=== PATIENT | male | born 1940 | race Caucasian/White ===

== ENCOUNTER → 2017-02-02 | Outpatient (CLI) | payer MEDICARE, OTHER ==
[~2017-02-02] MED LIST: ALBUAER3 INH; ASPI-516 CHEW; CENTCHW4 CHEW; CIPR500T2 PO; CORE25TA PO; ENAL5TAB PO; FENO54TA PO; FLUT1SPR5 EACH NARE; FURO1TAB60 PO; NITR1SUB3 SL; PLAV75TA29 PO; POTA10CA PO; PROS5TAB PO; ROSU40 PO; TIZA2CAP3 PO; VALS1TAB64 PO; ZITHTAB PO
== END ==
LOC: HSPC 11:42
PROVIDERS: ATTEND Family Medicine
DX: Z00.00 Encounter for general adult medical examination without abnormal findings (principal)
CPT/HCPCS: 99213; G0463

== ENCOUNTER 2017-04-23 16:46 | Inpatient (IN) | payer MEDICARE, OTHER ==
[~2017-04-23] VITALS: Ht 182.9 cm; Wt 92.0 kg
[2017-04-23 00:25] VITALS: BP 170/101; PULSE 106; RESP 18; TEMP 94.5; O2SAT 93
[~2017-04-23 16:46] MED LIST changes: -CIPR500T2 PO; -ENAL5TAB PO; -FLUT1SPR5 EACH NARE; +MELO15TA20 PO; -ZITHTAB PO
[2017-04-23 16:48] VITALS: BP 142/69; PULSE 88; RESP 21; TEMP 97.9; O2SAT 94
[2017-04-23] MEDS ORDERED: methylPREDNISolone SOD SUCC 125 MG/2 ML VIAL IV PUSH ONE (19:15)
[2017-04-23] MEDS ORDERED: SODIUM CHLORIDE 0.9% FLUSH 10 ML FLUSH IVF PRN (19:15)
--- NOTE | 2017-04-23 19:17 | PD ---
HPI Chief Complaint: Respiratory Symptoms Time Seen by Provider: 19:13 Travel History International Travel<30 days: No Contact w/Intl Traveler<30days: No Traveled to known affect area: No History of Present Illness HPI 76-year-old male patient with history of CAD, CABG, CHF, COPD, presents to the ER today with 2 weeks history of coughing, shortness of breath, dyspnea on exertion, worse with laying down and according to his daughter. He has not been running any fevers, has some sternal area chest discomfort especially with coughing. He had been seen a few weeks ago at [facility] and treated with steroids and they state that it doesn't seem to be improving. Modifying Factors: None Associated Signs & Symptoms: Coughing, shortness of breath, dyspnea on exertion Risk Factors: COPD, CHF PFSH Past Medical History Cancer: Yes ('LUNG") High Cholesterol: Yes COPD: Yes Hypertension: Yes Past Surgical History Appendectomy: Yes Cardiac Surgery: Yes ("TRIPLE BYPASS", STENTS X2) Social History Alcohol Use: No Tobacco Use: No Substance Use: No Allergies-Medications (Allergen,Severity, Reaction): Coded Allergies: No Known Allergies (Verified Adverse Reaction, Unknown, 04/23/17) Reported Meds & Prescriptions Reported Meds & Active Scripts Active Meloxicam 15 Mg Tab 15 Mg PO DAILY Lasix (Furosemide) 40 Mg Tab 40 Mg PO BID Proscar (Finasteride) 5 Mg Tab 5 Mg PO DAILY Do not crush. Fenofibrate 54 Mg Tab 54 Mg PO DAILY Proair Hfa 8.5 GM Inh (Albuterol Sulfate) 90 Mcg/Act Aer 1 Puff INH Q4H PRN 108 mcg/actuation Reported Valsartan 80 Mg Tab 80 Mg PO DAILY Coreg (Carvedilol) 25 Mg Tab 25 Mg PO BID Aspirin 81 Mg Chew 81 Mg CHEW DAILY Centrum (Multiple Vitamins W/ Minerals) 1 Chew 1 Tab CHEW DAILY Nitroglycerin SL (Nitroglycerin) 0.4 Mg Subl 0.4 Mg SL DIRECTED PRN ONE TABLET UNDER THE TONGUE NEEDED FOR CHEST PAIN, MAY REPEAT EVERY FIVE MINUTES FOR A TOTAL OF 3 DOSES OR CALL 911 IF NO RELIEF Plavix (Clopidogrel Bisulfate) 75 Mg Tab 75 Mg PO DAILY Review of Systems Except as stated in HPI: all other systems reviewed are Neg Physical Exam Narrative GENERAL: Well-developed elderly white male patient currently in mild respiratory distress. Awake and oriented 3. He is sitting up. SKIN: Focused skin assessment warm/dry. HEAD: Atraumatic. Normocephalic. EYES: Pupils equal and round. No scleral icterus. No injection or drainage. ENT: No nasal bleeding or discharge. Mucous membranes pink and moist. NECK: Trachea midline. No JVD. Supple. CARDIOVASCULAR: Regular rate and rhythm. No murmur appreciated. RESPIRATORY: No accessory muscle use. Mild wheezing throughout. Breath sounds equal bilaterally. GASTROINTESTINAL: Abdomen soft, non-tender, nondistended. Hepatic and splenic margins not palpable. MUSCULOSKELETAL: No obvious deformities. No clubbing. No cyanosis. No edema. NEUROLOGICAL: Awake and alert. No obvious cranial nerve deficits. Motor grossly within normal limits. Normal speech. PSYCHIATRIC: Appropriate mood and affect; insight and judgment normal. Data Data Last Documented VS Vital Signs Date Time Temp Pulse Resp B/P (MAP) Pulse Ox O2 Delivery O2 Flow Rate FiO2 04/23/17 21:53 94 Room Air 04/23/17 21:53 16 04/23/17 20:03 1.00 04/23/17 18:37 86 04/23/17 16:48 97.9 Orders Orders Complete Blood Count With Diff (04/23/17 19:13) Comprehensive Metabolic Panel (04/23/17 19:13) B-Type Natriuretic Peptide (04/23/17 19:13) Ckmb (Isoenzyme) Profile (04/23/17 19:13) Troponin I (04/23/17 19:13) Influenzae A/B Antigen (04/23/17 19:13) Iv Access Insert/Monitor (04/23/17 19:13) Electrocardiogram (04/23/17 19:13) Ecg Monitoring (04/23/17 19:13) Oximetry (04/23/17 19:13) Oxygen Administration (04/23/17 19:13) Chest, Single Ap (04/23/17 19:13) Sodium Chloride 0.9% Flush (Ns Flush) (04/23/17 19:15) Methylprednisolone So Succ Inj (Solumedr (04/23/17 19:15) Albuterol-Ipratropium Neb (Duoneb Neb) (04/23/17 19:15) Albuterol-Ipratropium Neb (Duoneb Neb) (04/23/17 20:00) Furosemide Inj (Lasix Inj) (04/23/17 20:30) Albuterol-Ipratropium Neb (Duoneb Neb) (04/23/17 21:15) Admit Order (Ed Use Only) (04/23/17 22:13) Albuterol-Ipratropium Neb (Duoneb Neb) (04/24/17 08:00) Albuterol-Ipratropium Neb (Duoneb Neb) (04/23/17 22:15) Budeson-Formot 160-4.5 Mcg Inh (Symbicor (04/24/17 09:00) Guaifenesin Er (Mucinex Er) (04/24/17 09:00) Methylprednisolone So Succ Inj (Solumedr (04/24/17 00:00) Place In Observation (04/23/17 ) Vital Signs (Adult) Q4H (04/23/17 22:12) Activity Oob Ad Rosmery (04/23/17 22:12) Vessel Captain / Telemetry .CONTINUOUS (04/23/17 22:12) Diet Heart Healthy (04/24/17 Breakfast) Sodium Chloride 0.9% Flush (Ns Flush) (04/23/17 22:15) Sodium Chloride 0.9% Flush (Ns Flush) (04/24/17 09:00) Ondansetron Inj (Zofran Inj) (04/23/17 22:15) Comprehensive Metabolic Panel (04/24/17 06:00) Complete Blood Count With Diff (04/24/17 06:00) Troponin I (04/24/17 00:00) Troponin I (04/24/17 06:00) Enoxaparin Inj (Lovenox Inj) (04/24/17 09:00) Acetaminophen (Tylenol) (04/23/17 22:15) Acetamin-Hydrocod 325-5 Mg ([place] 5-325 (04/23/17 22:15) Acetamin-Hydrocod 325-10 Mg ([place] 10-32 (04/23/17 22:15) Docusate Sodium-Senna (Karishma-Colace) (04/24/17 09:00) Magnesium Hydroxide Liq (Milk Of Magnesi (04/23/17 22:15) Sennosides (Senokot) (04/23/17 22:15) Bisacodyl Supp (Dulcolax Supp) (04/23/17 22:15) Lactulose Liq (Lactulose Liq) (04/23/17 22:15) Aspirin Chew (Aspirin Chew) (04/24/17 09:00) Carvedilol (Coreg) (04/24/17 09:00) Clopidogrel (Plavix) (04/24/17 09:00) Finasteride (Proscar) (04/24/17 09:00) Furosemide (Lasix) (04/24/17 09:00) Valsartan (Diovan) (04/24/17 09:00) Fenofibrate (Tricor) (04/24/17 09:00) Labs Laboratory Tests Test 04/23/17 19:35 White Blood Count 9.2 TH/MM3 Red Blood Count 4.90 MIL/MM3 Hemoglobin 14.9 GM/DL Hematocrit 44.7 % Mean Corpuscular Volume 91.2 FL Mean Corpuscular Hemoglobin 30.4 PG Mean Corpuscular Hemoglobin Concent 33.4 % Red Cell Distribution Width 17.0 % Platelet Count 107 TH/MM3 Mean Platelet Volume 8.7 FL Neutrophils (%) (Auto) 77.2 % Lymphocytes (%) (Auto) 14.4 % Monocytes (%) (Auto) 6.4 % Eosinophils (%) (Auto) 1.3 % Basophils (%) (Auto) 0.7 % Neutrophils # (Auto) 7.1 TH/MM3 Lymphocytes # (Auto) 1.3 TH/MM3 Monocytes # (Auto) 0.6 TH/MM3 Eosinophils # (Auto) 0.1 TH/MM3 Basophils # (Auto) 0.1 TH/MM3 CBC Comment DIFF FINAL Differential Comment Blood Urea Nitrogen 21 MG/DL Creatinine 1.30 MG/DL Random Glucose 97 MG/DL Total Protein 6.8 GM/DL Albumin 3.6 GM/DL Calcium Level 9.1 MG/DL Alkaline Phosphatase 72 U/L Aspartate Amino Transf (AST/SGOT) 25 U/L Alanine Aminotransferase (ALT/SGPT) 76 U/L Total Bilirubin 0.8 MG/DL Sodium Level 139 MEQ/L Potassium Level 3.5 MEQ/L Chloride Level 104 MEQ/L Carbon Dioxide Level 27.3 MEQ/L Anion Gap 8 MEQ/L Estimat Glomerular Filtration Rate 54 ML/MIN Total Creatine Kinase 82 U/L Troponin I 0.16 NG/ML B-Type Natriuretic Peptide 508 PG/ML MDM Medical Decision Making Medical Screen Exam Complete: Yes Emergency Medical Condition: Yes Medical Record Reviewed: Yes Interpretation(s) EKG shows normal sinus rhythm at a rate of 83 bpm. He does have T-wave inversions in the lateral leads, V1 through V6. No signs of acute ST-T elevations. Laboratory Tests Test 04/23/17 19:35 Platelet Count 107 TH/MM3 (150-450) Neutrophils (%) (Auto) 77.2 % (16.0-70.0) Blood Urea Nitrogen 21 MG/DL (7-18) Estimat Glomerular Filtration Rate 54 ML/MIN (>89) Troponin I 0.16 NG/ML (0.02-0.05) B-Type Natriuretic Peptide 508 PG/ML (0-100) Last 24 hours Impressions Chest X-Ray 04/23/17 1913 Signed Impressions: Service Date/Time: Sunday, April 23, 2017 19:29 - CONCLUSION: No evidence of acute cardiopulmonary disease. Gregorio Hatfield MD Differential Diagnosis Coughing, shortness of breath: CHF exacerbation versus pneumonia versus COPD exacerbation versus bronchitis Narrative Course Patient was initially given Solu-Medrol and nebulizers in the ER. Lasix was also given due to patient's history of CHF. His initial EKG shows T-wave inversions in the lateral leads. His troponin is mildly elevated. He is not having any chest pains. However this will need to be evaluated as well. At this point, my plan would be to admit the patient for further evaluation and treatment. Case is discussed with Dr. Lemus for admission. Diagnosis Primary Impression: COPD exacerbation Additional Impression: Elevated troponin Admitting Information Admitting Physician Requests: Admit Jason Armenta MD Apr 23, 2017 19:17
--- NOTE | 2017-04-23 19:42 | RADRPT ---
EXAM DATE/TIME: 04/23/2017 19:29 [place] COMPARISON: No previous studies available for comparison. INDICATIONS : Short of Breath MEDICAL HISTORY : Cardiovascular disease. SURGICAL HISTORY : CABG. ENCOUNTER: Initial ACUITY: 1 day PAIN SCORE: 0/10 LOCATION: chest FINDINGS: A single view of the chest demonstrates the lungs to be symmetrically aerated without evidence of mas s, infiltrate or effusion. The cardiomediastinal contours are unremarkable. Osseous structures are intact. Median sternotomy/CABG changes are noted. CONCLUSION: No evidence of acute cardiopulmonary disease. Gregorio Hatfield MD on April 23, 2017 at 19:39 Board Certified Radiologist. This report was verified electronically.
[2017-04-23 19:51] LABS: AUTOMATED NEUTROPHIL # 7.1 TH/MM3 (1.8-7.7); BASOPHIL # 0.1 TH/MM3 (0-0.2); BASOPHIL % 0.7 % (0.0-2.0); EOSINOPHIL # 0.1 TH/MM3 (0-0.4); EOSINOPHIL % 1.3 % (0.0-4.0); HEMATOCRIT 44.7 % (39.0-51.0); HEMOGLOBIN 14.9 GM/DL (13.0-17.0); LYMPH % 14.4 % (9.0-44.0); LYMPHOCYTE # 1.3 TH/MM3 (1.0-4.8); MEAN CELL VOLUME 91.2 FL (80.0-100.0); MEAN CORPUSCULAR HEMOGLOBIN 30.4 PG (27.0-34.0); MEAN CORPUSCULAR HGB CONC 33.4 % (32.0-36.0); MEAN PLATELET VOLUME 8.7 FL (7.0-11.0); MONO % 6.4 % (0.0-8.0); MONOCYTE # 0.6 TH/MM3 (0-0.9); NEUT % 77.2 % (16.0-70.0); PLATELET COUNT 107 TH/MM3 (150-450); WHITE BLOOD COUNT 9.2 TH/MM3 (4.0-11.0)
[2017-04-23] MEDS: RESP: ALBUTEROL 2.5 MG/IPRATROPIUM 0.5 MG NEB (SCH) INH ×3 (20:01→21:28)
[2017-04-23 20:03] VITALS: O2SAT 97
[2017-04-23 20:06] LABS: ALBUMIN 3.6 GM/DL (3.4-5.0); AST (GOT) 25 U/L (15-37); BICARBONATE 27.3 MEQ/L (21.0-32.0); BLOOD UREA NITROGEN 21 MG/DL (7-18); CALCIUM 9.1 MG/DL (8.5-10.1); CHLORIDE 104 MEQ/L (98-107); GLOMERULAR FILTRATION RATE 54 ML/MIN (>89); GLUCOSE,RANDOM 97 MG/DL (74-106); SODIUM (NA) 139 MEQ/L (136-145)
[2017-04-23 20:07] LABS: ALT (GPT) 76 U/L (12-78)
[2017-04-23 20:11] LABS: ALKALINE PHOSPHATASE 72 U/L (45-117); TOTAL BILIRUBIN ADULT 0.8 MG/DL (0.2-1.0); TOTAL PROTEIN 6.8 GM/DL (6.4-8.2); TROPONIN I 0.16 NG/ML (0.02-0.05)
[2017-04-23] MEDS ORDERED: FUROSEMIDE 40 MG/4 ML VIAL IV PUSH ONE (20:30)
[2017-04-23 21:53] VITALS: RESP 16; O2SAT 94
[2017-04-23] MEDS ORDERED: ACETAMINOPHEN/HYDROcodone 325 MG/10 MG TAB PO PRN (22:15)
[2017-04-23] MEDS ORDERED: ONDANSETRON HCL 4 MG/2 ML VIAL IVP PRN (22:15)
[2017-04-23] MEDS ORDERED: SENNOSIDES 8.6 MG TAB PO PRN (22:15)
[2017-04-23] MEDS ORDERED: SODIUM CHLORIDE 0.9% FLUSH 10 ML FLUSH IV FLUSH PRN (22:15)
[2017-04-23] MEDS ORDERED: RESP: ALBUTEROL 2.5 MG/IPRATROPIUM 0.5 MG NEB (PRN) NEB (22:15)
[2017-04-23] MEDS ORDERED: LACTULOSE SYRUP 20 GM/30 ML CUP PO PRN (22:15)
[2017-04-23] MEDS ORDERED: ACETAMINOPHEN 325 MG TAB PO PRN (22:15)
[2017-04-23] MEDS ORDERED: MAGNESIUM HYDROXIDE SUSP 30 ML CUP PO PRN (22:15)
[2017-04-23] MEDS ORDERED: ACETAMINOPHEN/HYDROcodone 325 MG/5 MG TAB PO PRN (22:15)
[2017-04-23] MEDS ORDERED: BISACODYL 10 MG SUPP RECTAL PRN (22:15)
--- NOTE | 2017-04-23 22:16 | HHI.HP ---
HPI [facility] Primary [facility] Physician No Primary Care Physician Admission Diagnosis COPD exacerbation/elevated troponin Diagnoses: (1) COPD (chronic obstructive pulmonary disease) Diagnosis: Principal (2) Elevated troponin Diagnosis: Principal (3) CHF (congestive heart failure) Diagnosis: Principal Travel History International Travel<30 Days: No Contact w/Intl Traveler <30 Da: No Traveled to Known Affected Are: No History of Present Illness This is a 76-year-old male with a PMH of HTN, CAD, CHF (Cardiac Cath 10/05/12 w EF 35%) and COPD who presented to the ER w/ complaints of SOB and cough for approx 2 wks. States SOB is intermittent, worse w/ exertion, associated w/ wheezing. No c/o chest pain. Reports non-productive cough but no fever or chills, notes some mild lower extremity edema. Seen at [facility] for similar symptoms 1 wk ago, given steroids w/ minimal improvement. States has been using home Nebulizer machine w/ no improvement either. On arrival, BP 142/69, HR 88, O2 sat 94% on RA, Afebrile CBC essentially at baseline. Chemistry unremarkable except for BUN 21. Troponin 0.16. BNP 508. INR 1.0. CXR with no acute findings. S/p Lasix, DuoNeb x3 and Solu-Medrol in ER w/ some improvement however persistent SOB/wheezing w/ exertion. Follows w/ Dr. Andrade as outpatient, has upcoming appt on . Review of Systems Except as stated in HPI: all other systems reviewed are Neg ROS: 14 point review of systems otherwise negative. Past Family Social History Past Medical History PMH: HTN, CAD, CHF (Cardiac Cath 10/05/12 w EF 35%) and COPD Past Surgical History PAST SURGICAL HISTORY: CABG, Appendectomy Allergies: Coded Allergies: No Known Allergies (Verified Adverse Reaction, Unknown, 04/23/17) Family History PAST FAMILY HISTORY: Reviewed. No h/o DM or CAD Social History PAST SOCIAL HISTORY: Negative for alcohol, tobacco or drugs. Physical Exam Vital Signs Vital Signs Date Time Temp Pulse Resp B/P (MAP) Pulse Ox O2 Delivery O2 Flow Rate FiO2 04/23/17 21:53 94 Room Air 04/23/17 21:53 16 94 Room Air 04/23/17 20:03 97 Nasal Cannula 1.00 04/23/17 18:37 86 22 95 1.00 04/23/17 16:48 97.9 88 21 142/69 (93) 94 Physical Exam PE: GENERAL: Extremely pleasant elderly white male in no acute distress, appears younger than stated age. HEENT: PERRLA, EOMI. No scleral icterus or conjunctival pallor. No lid lag or facial droop. CARDIOVASCULAR: Regular rate and rhythm. No obvious murmurs to auscultation. No chest tenderness to palpation. RESPIRATORY: No obvious rhonchi, occasional wheezing, otherwise clear to auscultation. Breath sounds equal bilaterally. GASTROINTESTINAL: Abdomen soft, non-tender, nondistended. BS normal. MUSCULOSKELETAL: Extremities without clubbing, cyanosis, or edema. No obvious deformities. NEUROLOGICAL: Awake, alert and oriented x4. No focal neurologic deficits. Moving both upper and lower extremities spontaneously. Laboratory Laboratory Tests Test 04/23/17 19:35 White Blood Count 9.2 Red Blood Count 4.90 Hemoglobin 14.9 Hematocrit 44.7 Mean Corpuscular Volume 91.2 Mean Corpuscular Hemoglobin 30.4 Mean Corpuscular Hemoglobin Concent 33.4 Red Cell Distribution Width 17.0 Platelet Count 107 Mean Platelet Volume 8.7 Neutrophils (%) (Auto) 77.2 Lymphocytes (%) (Auto) 14.4 Monocytes (%) (Auto) 6.4 Eosinophils (%) (Auto) 1.3 Basophils (%) (Auto) 0.7 Neutrophils # (Auto) 7.1 Lymphocytes # (Auto) 1.3 Monocytes # (Auto) 0.6 Eosinophils # (Auto) 0.1 Basophils # (Auto) 0.1 CBC Comment DIFF FINAL Differential Comment Blood Urea Nitrogen 21 Creatinine 1.30 Random Glucose 97 Total Protein 6.8 Albumin 3.6 Calcium Level 9.1 Alkaline Phosphatase 72 Aspartate Amino Transf (AST/SGOT) 25 Alanine Aminotransferase (ALT/SGPT) 76 Total Bilirubin 0.8 Sodium Level 139 Potassium Level 3.5 Chloride Level 104 Carbon Dioxide Level 27.3 Anion Gap 8 Estimat Glomerular Filtration Rate 54 Total Creatine Kinase 82 Troponin I 0.16 B-Type Natriuretic Peptide 508 Date/Time Source Procedure Growth Status 04/23/17 19:35 Nasal Washing Influenza Types A,B Antigen (JOAN) - Final NEGATIVE FOR FLU A AND B ANTIGEN.... Complete Result Diagram: 04/23/17193404/23/171934 Fabrice VTE Risk Assessment Joshua VTE Risk Assessment: No/Low Risk (score <= 1) Joshua Risk Assessment Model Point Value = 1 Point Value = 2 Point Value = 3 Point Value = 5 Age 41-60 Minor surgery BMI > 25 kg/m2 Swollen legs Varicose veins or History of unexplained or recurrent spontaneous Oral contraceptives or hormone replacement Sepsis (< 1 month) Serious lung disease, including pneumonia (< 1 month) Abnormal pulmonary function Acute myocardial infarction Congestive heart failure (< 1 month) History of inflammatory bowel disease Medical patient at bed rest Age 61-74 Arthroscopic surgery Major open surgery (> 45 min) Laparoscopic surgery (> 45 min) Malignancy Confined to bed (> 72 hours) Immobilizing plaster cast Central venous access Age >= 75 History of VTE Family history of VTE Factor V Leiden Prothrombin [id number] Lupus anticoagulant Anticardiolipin antibodies Elevated serum homocysteine Heparin-induced thrombocytopenia Other congenital or acquired thrombophilia Stroke (< 1 month) Elective arthroplasty Hip, pelvis, or leg fracture Acute spinal cord injury (< 1 month) Prophylaxis Regimen Total Risk Factor Score Risk Level Prophylaxis Regimen 0-1 Low Early ambulation 2 Moderate Order ONE of the following: *Sequential Compression Device (SCD) *Heparin 5000 units SQ BID 3-4 Higher Order ONE of the following medications: *Heparin 5000 units SQ TID *Enoxaparin/Lovenox 40 mg SQ daily (WT < 150 kg, CrCl > 30 mL/min) *Enoxaparin/Lovenox 30 mg SQ daily (WT < 150 kg, CrCl > 10-29 mL/min) *Enoxaparin/Lovenox 30 mg SQ BID (WT < 150 kg, CrCl > 30 mL/min) AND/OR *Sequential Compression Device (SCD) 5 or more Highest Order ONE of the following medications: *Heparin 5000 units SQ TID (Preferred with Epidurals) *Enoxaparin/Lovenox 40 mg SQ daily (WT < 150 kg, CrCl > 30 mL/min) *Enoxaparin/Lovenox 30 mg SQ daily (WT < 150 kg, CrCl > 10-29 mL/min) *Enoxaparin/Lovenox 30 mg SQ BID (WT < 150 kg, CrCl > 30 mL/min) AND *Sequential Compression Device (SCD) Assessment and Plan Problem List: (1) COPD (chronic obstructive pulmonary disease) ICD Code: J44.9 - Chronic obstructive pulmonary disease, unspecified (2) Elevated troponin ICD Code: R74.8 - Abnormal levels of other serum enzymes Status: Acute (3) CHF (congestive heart failure) ICD Code: I50.9 - Heart failure, unspecified Assessment and Plan A/P: 1. COPD: Chronic Respiratory Failure w/ Acute Exacerbation. Moderate-Severe, s/p multiple treatments w/ DuoNeb and Solu-Medrol w/ persistent SOB/wheezing, worse w/ exertion. Admit for continued treatment. Solu-Medrol, DuoNeb q4h and q2h prn, Symbicort. Monitor O2. 2. CHF: Acute on Chronic. Systolic. Cardiac Cath 10/05/12 w/ EF 35%, BNP 508 , s/p Lasix 40mg IV in ER. Monitor I/O. Check Echo to eval for systolic/ diastolic dysfunction. Continue w/ diuresis. 3. Elevated Trop: Trop 0.16, EKG w/ no acute ischemia, no c/o chest pain, likely secondary to acute CHF however R/o ACS in light of significant cardiac history. Check serial cardiac enzymes, NTG/Morphine prn as needed. Resume home medications. Follows w/ Dr. Andrade, will consult for further evaluation. 4. DVT Prophylaxis: SCD/teds. 5. Social work for DC planning as needed. 6. Case discussed at length with ER physician, labs/imaging/records reviewed by me. Perla Lemus MD Apr 23, 2017 22:16
[2017-04-23] MEDS: methylPREDNISolone SOD SUCC 40 MG/1 ML VIAL IV PUSH SCH (23:59)
[2017-04-24] VITALS (10 sets, daily range): BP systolic 116–124; BP diastolic 55–68; PULSE 77–98; RESP 18–19; TEMP 94.6–98.2; O2SAT 92–99
[2017-04-24] MEDS: methylPREDNISolone SOD SUCC 40 MG/1 ML VIAL IV PUSH SCH ×3 (05:43→17:17)
[2017-04-24] MEDS: RESP: ALBUTEROL 2.5 MG/IPRATROPIUM 0.5 MG NEB (SCH) NEB ×4 (07:46→20:05)
[2017-04-24 08:26] LABS: AUTOMATED NEUTROPHIL # 6.1 TH/MM3 (1.8-7.7); BASOPHIL % 0.2 % (0.0-2.0); EOSINOPHIL % 0.1 % (0.0-4.0); HEMATOCRIT 42.2 % (39.0-51.0); HEMOGLOBIN 14.2 GM/DL (13.0-17.0); LYMPH % 7.4 % (9.0-44.0); LYMPHOCYTE # 0.5 TH/MM3 (1.0-4.8); MEAN CELL VOLUME 91.3 FL (80.0-100.0); MEAN CORPUSCULAR HEMOGLOBIN 30.8 PG (27.0-34.0); MEAN CORPUSCULAR HGB CONC 33.7 % (32.0-36.0); MEAN PLATELET VOLUME 8.4 FL (7.0-11.0); MONO % 1.6 % (0.0-8.0); MONOCYTE # 0.1 TH/MM3 (0-0.9); NEUT % 90.7 % (16.0-70.0); PLATELET COUNT 94 TH/MM3 (150-450); RED BLOOD COUNT 4.63 MIL/MM3 (4.50-5.90); RED CELL DISTRIBUTION WIDTH 17.4 % (11.6-17.2); WHITE BLOOD COUNT 6.8 TH/MM3 (4.0-11.0)
--- NOTE | 2017-04-24 08:50 | MB ---
cc: BRIDGER LOZANO M.D. DATE OF CONSULTATION: 04/24/2017 REASON FOR CONSULTATION Abnormal troponin level. HISTORY OF PRESENT ILLNESS The patient is a 76-year-old white male with a history of sleep apnea, ischemic cardiomyopathy, coronary artery disease, hypertension, hyperlipidemia, non-Hodgkin's lymphoma, who presented to the hospital with a several-day history of worsening dyspnea. Over these last several days he has also had a nonproductive cough without fevers, chills, sweats. He denies angina, paroxysmal nocturnal dyspnea, orthopnea, pedal edema, palpitations, dizziness, syncope, near-syncope. Since coming into the hospital his dyspnea has slightly improved. PAST MEDICAL HISTORY 1. Sleep apnea. 2. Congestive heart failure dating back to 2012 with his most recent exacerbation July 2016. 3. Ischemic cardiomyopathy with ejection fraction of 40-45% by echo on 12/08/2016. 4. Hyperlipidemia. 5. Hypertension. 6. Non-Hodgkin's lymphoma. 7. Coronary artery disease status post three-vessel bypass surgery in [place], [place] in 1998. He is also status post stenting of the midportion of the vein graft to the diagonal 03/31/2011. At that time he also underwent stent x 2 of the [place] LAD. On his last heart catheterization 09/25/2012, there was minimal left main disease, totally occluded proximal LAD, possibly totally occluded obtuse marginal, totally occluded mid-right coronary artery with good [id number] collaterals, totally occluded vein graft to the diagonal, patent left internal mammary artery to the LAD with patent [place] LAD stents, totally occluded vein graft to the obtuse marginal. MEDICATIONS Cardiac medications at home: 1. Plavix 75 mg daily. 2. Aspirin 81 mg daily. 3. Coreg 25 mg b.i.d. 4. Valsartan 80 mg daily. 5. Furosemide 40 mg b.i.d. 6. Fenofibrate 54 mg daily. ALLERGIES NO KNOWN DRUG ALLERGIES. FAMILY HISTORY Noncontributory. SOCIAL HISTORY The patient is a former smoker. He denies alcohol abuse. REVIEW OF SYSTEMS As in the history of present illness, otherwise negative or noncontributory. He also denies headache, abdominal pain, melena, dyspepsia, diarrhea, bright red blood per rectum. PHYSICAL EXAMINATION VITAL SIGNS: Blood pressure 124/68 with a pulse of 80, respirations 18. GENERAL: He is a well-developed, well-nourished white male in no acute distress. HEENT: Jugular venous pressure is normal. Carotid pulses are 2+ bilaterally and without bruits. CHEST: Examination of the chest reveals clear lung robertson. CARDIAC: He has a regular rhythm and rate with a grade 1/6 systolic murmur heard best at the apex. No gallop is audible. ABDOMEN: On abdominal examination he has a soft, nontender abdomen. Bowel sounds are present. There is no definite hepatosplenomegaly. EXTREMITIES: Examination of the extremities reveals no clubbing, cyanosis or edema. IMAGING STUDIES Chest x-ray shows no acute disease. EKG Shows sinus rhythm, right bundle-branch block, lateral ST abnormality, consider ischemia. LABORATORY DATA Laboratory data includes normal CBC, potassium 3.5, BUN 21, creatinine 1.30, troponin 0.16. IMPRESSION Minimally elevated troponin levels in this 76-year-old white male with a history of coronary artery disease, mild ischemic cardiomyopathy, congestive heart failure, sleep apnea, hypertension, hyperlipidemia. Overall, I doubt the slightly elevated troponin levels are due to acute coronary syndrome. He has had no angina symptoms recently. I doubt his dyspnea is an angina equivalent. Despite constant dyspnea for several days, CK level is negative for myocardial infarction. Echocardiogram is pending. There is no definite evidence of congestive heart failure. Chest x-ray shows no acute disease. RECOMMENDATIONS 1. Continue his usual home cardiac medications. 2. Await his echo; otherwise recommend no additional cardiac workup at this time. MD YURI Michelle/ENDER /8:23 AM /8:36 AM CHRISTOS
[2017-04-24] MEDS: DOCUSATE SODIUM 50 MG/SENNA 8.6 MG TAB PO SCH ×2 (08:58→22:08)
[2017-04-24] MEDS: BUDESONIDE-FORMOTEROL 160/4.5 MCG INHALER INH SCH ×2 (08:58→22:09)
[2017-04-24] MEDS: ASPIRIN 81 MG CHEW TAB CHEW SCH (08:58)
[2017-04-24] MEDS: FENOFIBRATE 48 MG TAB PO SCH (08:59)
[2017-04-24] MEDS: VALSARTAN 80 MG TAB PO SCH (09:00)
[2017-04-24] MEDS ORDERED: FUROSEMIDE 40 MG TAB PO SCH (09:00)
[2017-04-24] MEDS: guaiFENesin E.R. 600 MG TAB PO SCH ×2 (09:00→22:08)
[2017-04-24] MEDS: CARVEDILOL 12.5 MG TAB PO SCH ×2 (09:01→22:08)
[2017-04-24] MEDS: CLOPIDOGREL 75 MG TAB PO SCH (09:01)
[2017-04-24] MEDS: FINASTERIDE 5 MG TAB PO SCH (09:02)
[2017-04-24] MEDS: ENOXAPARIN SODIUM 40 MG/0.4 ML SYRINGE SQ SCH (09:03)
[2017-04-24] MEDS: SODIUM CHLORIDE 0.9% FLUSH 10 ML FLUSH IV FLUSH SCH ×2 (09:03→22:08)
[2017-04-24 09:08] LABS: ALBUMIN 3.4 GM/DL (3.4-5.0); ALT (GPT) 67 U/L (12-78); AST (GOT) 22 U/L (15-37); BICARBONATE 26.5 MEQ/L (21.0-32.0); BLOOD UREA NITROGEN 24 MG/DL (7-18); CALCIUM 9.2 MG/DL (8.5-10.1); CHLORIDE 103 MEQ/L (98-107); CREATININE 1.15 MG/DL (0.60-1.30); GLOMERULAR FILTRATION RATE 62 ML/MIN (>89); GLUCOSE,RANDOM 233 MG/DL (74-106); SODIUM (NA) 137 MEQ/L (136-145)
[2017-04-24 09:21] LABS: ALKALINE PHOSPHATASE 62 U/L (45-117); TOTAL BILIRUBIN ADULT 0.7 MG/DL (0.2-1.0); TOTAL PROTEIN 6.7 GM/DL (6.4-8.2); TROPONIN I 0.13 NG/ML (0.02-0.05)
[2017-04-24] MEDS ORDERED: BENZONATATE 100 MG CAP PO ONE (14:45)
--- NOTE | 2017-04-24 18:14 | HHI.PR ---
Subjective Remarks Follow for COPD exacerbation. Patient still feels short of breath and wheezy. No fever, chills. He continues to have cough. On 2L of O2 via NC. Objective Vitals Vital Signs Date Time Temp Pulse Resp B/P (MAP) Pulse Ox O2 Delivery O2 Flow Rate FiO2 04/24/17 15:57 97.6 84 19 121/61 (81) 95 04/24/17 11:43 96.3 84 19 116/55 (75) 94 04/24/17 07:59 97.5 81 18 124/68 (86) 96 04/24/17 07:48 98 Nasal Cannula 2.00 04/24/17 05:24 81 04/24/17 04:20 94.6 77 18 118/60 (79) 94 04/24/17 01:45 98 04/24/17 00:39 99 Nasal Cannula 2.00 04/23/17 21:53 94 Room Air 04/23/17 21:53 16 94 Room Air 04/23/17 20:03 97 Nasal Cannula 1.00 04/23/17 18:37 86 22 95 1.00 Result Diagram: 04/24/17 0711 04/24/17 0711 Imaging Last Impressions Chest X-Ray 04/23/17 191 Signed Impressions: Service Date/Time: Sunday, April 23, 2017 19:29 - CONCLUSION: No evidence of acute cardiopulmonary disease. Gregorio Hatfield MD Objective Remarks GENERAL: AOX3, NAD. SKIN: Warm and dry. HEAD: Normocephalic. EYES: No scleral icterus. No injection or drainage. NECK: Supple, trachea midline. No JVD or lymphadenopathy. CARDIOVASCULAR: Regular rate and rhythm without murmurs, gallops, or rubs. RESPIRATORY: Moderate air entry, diffuse coarse sound, no appreciable wheezing. No accessory muscle use. GASTROINTESTINAL: Abdomen soft, non-tender, nondistended. MUSCULOSKELETAL: No cyanosis, or edema. BACK: Nontender without obvious deformity. No CVA tenderness. Procedures None. A/P Problem List: (1) COPD (chronic obstructive pulmonary disease) ICD Code: J44.9 - Chronic obstructive pulmonary disease, unspecified (2) Elevated troponin ICD Code: R74.8 - Abnormal levels of other serum enzymes Status: Acute (3) CHF (congestive heart failure) ICD Code: I50.9 - Heart failure, unspecified Assessment and Plan This is a 76-year-old male with a PMH of HTN, CAD, CHF (Cardiac Cath 10/05/12 w EF 35%) and COPD who presented to the ER on 04/23/2017 w/ complaints of SOB and cough for approx 2 wks. Seen at [facility] for similar symptoms 1 wk ago prior to this admission, given steroids w/ minimal improvement. BNP was 508. Troponins were slightly elevated and Cardiology evaluated patient. No further cardiac work up recommended at this time. - Acute COPD exacerbation - Patient was recently admitted at another hospital. However, no resolution of his symptoms. - Will continue IV Solu-medrol 40mg Q6hrs, DuoNeb Q4hrs and PRN. Continue Symbicort. - Will add Levaquin 750mg Qday PO X 7 days. - If symptoms are not improved by tomorrow, we will consider obtaining CT chest on 04/25/2017. - Probable congestive heart failure - systolic - Cardiac cath 2012 --> EF 35%. - Currently on Lasix 40mg PO BID. - Will switch to Lasix IV 20mg BID and will switch to PO Torsemide on discharge. - 2D echo pending. - CAD - no acute issues. Troponins 0.13 - 0.16 likely due to pulmonary issues. - Continue Aspirin 81mg Qday, Plavix 75mg Qday - Continue Carvedilol 25mg BID. - Continue Fenofibrate 48mg Qday - Hypertension - Continue Valsartan 80mg Qday Full code. Lovenox. Skinny Lowe DO Apr 24, 2017 18:14
[2017-04-24] MEDS ORDERED: FUROSEMIDE 20 MG/2 ML VIAL IV PUSH ONE (18:15)
[2017-04-24] MEDS: BENZONATATE 100 MG CAP PO SCH (18:47)
[2017-04-24] MEDS: LEVOFLOXACIN 750 MG TAB PO SCH (18:51)
--- NOTE | 2017-04-24 19:12 | EKG ---
Date Performed: 04/23/2017 Time Performed: 19:35:30 PTAGE: 76 years EKG: Sinus rhythm WITH SINUS ARRHYTHMIA RIGHT BUNDLE BRANCH BLOCK LEFT ANTERIOR FASCICULAR BLOCK ST DEPRESSION, CONSID ER SUBENDOCARDIAL INJURY Since previous tracing, no significant change noted ABNORMAL ECG PREVIOUS TRACING : 09/25/2012 12.23 DOCTOR: Alex Maldonado Interpretating Date/Time 04/24/2017 19:11:09
[2017-04-25] VITALS (9 sets, daily range): BP systolic 115–121; BP diastolic 58–74; PULSE 80–90; RESP 16–18; TEMP 97.4–98.2; O2SAT 91–96
[2017-04-25] MEDS: methylPREDNISolone SOD SUCC 40 MG/1 ML VIAL IV PUSH SCH ×3 (00:42→12:57)
--- NOTE | 2017-04-25 07:53 | PD.CARD.PN ---
Subjective Subjective Remarks Dyspnea somewhat better. Nonproductive cough persists. No PND, angina, dizziness, palpitations. Objective Medications Item Value Date Time Furosemide 20 mg 04/25/17 0900 (Lasix Inj) BID@/IV PUSH Enoxaparin Sodium 40 mg 04/24/17 0900 (Lovenox Inj) Q24H/SQ 04/24/17 0903 Aspirin 81 mg 04/24/17 0900 (Aspirin Chew) DAILY/CHEW 04/24/17 0858 Carvedilol 25 mg 04/24/17 0900 (Coreg) BID/PO 04/24/17 2208 Clopidogrel 75 mg 04/24/17 0900 Bisulfate DAILY/PO 04/24/17 0901 (Plavix) Valsartan 80 mg 04/24/17 0900 (Diovan) DAILY/PO 04/24/17 0900 Fenofibrate 48 mg 04/24/17 0900 (Tricor) DAILY/PO 04/24/17 0859 Current Medications Medications (Trade) Dose Ordered Sig/Matt Route Start Time Stop Time Status Last Admin (NS Flush) 2 ml UNSCH PRN IVF 04/23/17 19:15 (Duoneb Neb) 1 ampule Q4HR WHILE AWAKE NEB NEB 04/24/17 08:00 04/24/17 20:05 (Duoneb Neb) 1 ampule Q2HR NEB PRN NEB 04/23/17 22:15 04/24/17 00:36 (Symbicort 160-4.5 Mcg Inh) 2 puff Q12HR INH 04/24/17 09:00 04/24/17 22:09 (Mucinex Er) 600 mg BID PO 04/24/17 09:00 04/24/17 22:08 (SoluMEDROL INJ) 40 mg Q6HR IV PUSH 04/24/17 00:00 04/25/17 06:02 (NS Flush) 2 ml UNSCH PRN IV FLUSH 04/23/17 22:15 04/25/17 06:02 (NS Flush) 2 ml BID IV FLUSH 04/24/17 09:00 04/24/17 22:08 (Zofran Inj) 4 mg Q6H PRN IVP 04/23/17 22:15 (Lovenox Inj) 40 mg Q24H SQ 04/24/17 09:00 04/24/17 09:03 (Tylenol) 650 mg Q6H PRN PO 04/23/17 22:15 (Duncan 5-325 Mg) 1 tab Q4H PRN PO 04/23/17 22:15 (Duncan 10-325 Mg) 1 tab Q4H PRN PO 04/23/17 22:15 (Karishma-Colace) 1 tab BID PO 04/24/17 09:00 04/24/17 22:08 (Milk Of Magnesia Liq) 30 ml Q12H PRN PO 04/23/17 22:15 (Senokot) 17.2 mg Q12H PRN PO 04/23/17 22:15 (Dulcolax Supp) 10 mg DAILY PRN RECTAL 04/23/17 22:15 (Lactulose Liq) 30 ml DAILY PRN PO 04/23/17 22:15 (Aspirin Chew) 81 mg DAILY CHEW 04/24/17 09:00 04/24/17 08:58 (Coreg) 25 mg BID PO 04/24/17 09:00 04/24/17 22:08 (Plavix) 75 mg DAILY PO 04/24/17 09:00 04/24/17 09:01 (Proscar) 5 mg DAILY PO 04/24/17 09:00 04/24/17 09:02 (Diovan) 80 mg DAILY PO 04/24/17 09:00 04/24/17 09:00 (Tricor) 48 mg DAILY PO 04/24/17 09:00 04/24/17 08:59 (Tessalon) 100 mg TID PO 04/24/17 18:00 04/24/17 18:47 (Lasix Inj) 20 mg BID@18 IV PUSH 04/25/17 09:00 (Levaquin) 750 mg DAILY PO 04/24/17 18:15 04/24/17 18:51 Vital Signs / I&O Vital Signs Date Time Temp Pulse Resp B/P (MAP) Pulse Ox O2 Delivery O2 Flow Rate FiO2 04/25/17 07:43 97.4 83 16 121/74 (90) 95 04/25/17 04:30 97.8 84 18 115/64 (81) 95 04/25/17 04:00 80 04/25/17 00:30 98.2 81 18 120/61 (80) 91 1/30/18 00:12 21 04/25/17 00:10 81 04/24/17 20:56 98.2 90 18 123/65 (84) 92 04/24/17 20:05 90 04/24/17 15:57 97.6 84 19 121/61 (81) 95 04/24/17 11:43 96.3 84 19 116/55 (75) 94 04/24/17 07:59 97.5 81 18 124/68 (86) 96 Physical Exam GENERAL: Well developed, well nourished. No acute distress. HEENT: Jugular venous pressure is normal. CHEST: Lungs clear to auscultation bilaterally. Unlabored respiratory effort. CARDIAC: Regular rate and rhythm without S3, S4, or murmur. ABDOMEN: Soft, nontender, no hepatosplenomegaly. Bowel sounds present. EXTREMITIES: No clubbing, cyanosis, or edema. Imaging Last 48 hours Impressions Chest X-Ray 04/23/17 191 Signed Impressions: Service Date/Time: Sunday, April 23, 2017 19:29 - CONCLUSION: No evidence of acute cardiopulmonary disease. Gregorio Hatfield MD Assessment and Plan Problem List: (1) Ischemic cardiomyopathy ICD Codes: I25.5 - Ischemic cardiomyopathy Status: Chronic Plan: EF 40-45% on echo 10/2016. Echo pending this admission. Overall no definite evidence for acute CHF. No pulmonary edema on CXR. Recommend continuing his usual home cardiac medications. OK for discharge from cardiac standpoint. (2) CAD (coronary artery disease) ICD Codes: I25.10 - Atherosclerotic heart disease of [place] coronary artery without angina pectoris Status: Chronic Plan: Seemingly stable CAD status. No recent angina. Doubt slight elevations in troponin of any clinical significance. Doubt dyspnea has been his angina equivalent; despite dyspnea most of the last week, CK negative for NC. Rec no additional w/u at this time. (3) Hypertension ICD Codes: I10 - Essential (primary) hypertension Status: Chronic Plan: Stable. Normotensive. Code Status full code Discussed Condition With patient Problem Qualifiers (1) CAD (coronary artery disease): Qualified Codes: I25.10 - Atherosclerotic heart disease of [place] coronary artery without angina pectoris (2) Hypertension: Qualified Codes: I10 - Essential (primary) hypertension Gerry Andrade MD Apr 25, 2017 07:53
[2017-04-25] MEDS: FENOFIBRATE 48 MG TAB PO SCH (08:32)
[2017-04-25] MEDS: guaiFENesin E.R. 600 MG TAB PO SCH (08:32)
[2017-04-25] MEDS: VALSARTAN 80 MG TAB PO SCH (08:32)
[2017-04-25] MEDS: BENZONATATE 100 MG CAP PO SCH ×2 (08:32→12:58)
[2017-04-25] MEDS: RESP: ALBUTEROL 2.5 MG/IPRATROPIUM 0.5 MG NEB (SCH) NEB ×3 (08:33→15:27)
[2017-04-25] MEDS: CARVEDILOL 12.5 MG TAB PO SCH (08:33)
[2017-04-25] MEDS: CLOPIDOGREL 75 MG TAB PO SCH (08:33)
[2017-04-25] MEDS: LEVOFLOXACIN 750 MG TAB PO SCH (08:33)
[2017-04-25] MEDS: FINASTERIDE 5 MG TAB PO SCH (08:34)
[2017-04-25] MEDS: DOCUSATE SODIUM 50 MG/SENNA 8.6 MG TAB PO SCH (08:35)
[2017-04-25] MEDS: SODIUM CHLORIDE 0.9% FLUSH 10 ML FLUSH IV FLUSH SCH (08:35)
[2017-04-25] MEDS: ENOXAPARIN SODIUM 40 MG/0.4 ML SYRINGE SQ SCH (08:36)
[2017-04-25] MEDS: ASPIRIN 81 MG CHEW TAB CHEW SCH (08:36)
[2017-04-25] MEDS: BUDESONIDE-FORMOTEROL 160/4.5 MCG INHALER INH SCH (08:36)
[2017-04-25] MEDS ORDERED: FUROSEMIDE 20 MG/2 ML VIAL IV PUSH SCH (09:00)
[2017-04-25] MEDS ORDERED: LEVA750T9 PO ×2 (14:30→14:44)
[2017-04-25] MEDS ORDERED: ALBUAER3 INH (14:42)
[2017-04-25] MEDS ORDERED: PRED20 PO (14:42)
[2017-04-25] MEDS ORDERED: Budeson-Formot 160-4.5 Mcg Inh INH (14:42)
--- NOTE | 2017-04-25 14:45 | HHI.DS ---
Discharge Summary Admission Date Apr 23, 2017 at 10:15 pm Discharge Date: Apr 25, 2017 Admitting Diagnosis COPD exacerbation/elevated troponin (1) COPD (chronic obstructive pulmonary disease) ICD Code: J44.9 - Chronic obstructive pulmonary disease, unspecified (2) Elevated troponin ICD Code: R74.8 - Abnormal levels of other serum enzymes Status: Acute (3) CHF (congestive heart failure) ICD Code: I50.9 - Heart failure, unspecified Procedures Echo Normal left ventricular size. The left ventricular systolic function is severely reduced with an estimated ejection fraction in the range of 30-35%. The left atrial size is mildly dilated. Trace mitral valve regurgitation. No aortic valve stenosis. No aortic valve regurgitation. There is mild tricuspid valve regurgitation. The estimated pulmonary arterial pressure is 59.6 mmHg. Brief History - From Admission This is a 76-year-old male with a PMH of HTN, CAD, CHF (Cardiac Cath 10/05/12 w EF 35%) and COPD who presented to the ER w/ complaints of SOB and cough for approx 2 wks. States SOB is intermittent, worse w/ exertion, associated w/ wheezing. No c/o chest pain. Reports non-productive cough but no fever or chills, notes some mild lower extremity edema. Seen at [facility] for similar symptoms 1 wk ago, given steroids w/ minimal improvement. States has been using home Nebulizer machine w/ no improvement either. On arrival, BP 142/69, HR 88, O2 sat 94% on RA, Afebrile CBC essentially at baseline. Chemistry unremarkable except for BUN 21. Troponin 0.16. BNP 508. INR 1.0. CXR with no acute findings. S/p Lasix, DuoNeb x3 and Solu-Medrol in ER w/ some improvement however persistent SOB/wheezing w/ exertion. Follows w/ Dr. Andrade as outpatient, has upcoming appt on . CBC/BMP: 04/24/17 0711 04/24/17 0711 Significant Findings Laboratory Tests Test 04/23/17 19:35 04/24/17 02:22 04/24/17 07:11 Platelet Count 107 TH/MM3 (150-450) 94 TH/MM3 (150-450) Neutrophils (%) (Auto) 77.2 % (16.0-70.0) 90.7 % (16.0-70.0) Blood Urea Nitrogen 21 MG/DL (7-18) 24 MG/DL (7-18) Estimat Glomerular Filtration Rate 54 ML/MIN (>89) 62 ML/MIN (>89) Troponin I 0.16 NG/ML (0.02-0.05) 0.15 NG/ML (0.02-0.05) 0.13 NG/ML (0.02-0.05) B-Type Natriuretic Peptide 508 PG/ML (0-100) Red Cell Distribution Width 17.4 % (11.6-17.2) Lymphocytes (%) (Auto) 7.4 % (9.0-44.0) Lymphocytes # (Auto) 0.5 TH/MM3 (1.0-4.8) Platelet Estimate LOW (NORMAL) Random Glucose 233 MG/DL (74-106) Imaging Last Impressions Chest X-Ray 04/23/171912 Signed Impressions: Service Date/Time: Sunday, April 23, 2017 19:29 - CONCLUSION: No evidence of acute cardiopulmonary disease. Gregorio Hatfield MD PE at Discharge GENERAL: AOX3, NAD. SKIN: Warm and dry. HEAD: Normocephalic. EYES: No scleral icterus. No injection or drainage. NECK: Supple, trachea midline. No JVD or lymphadenopathy. CARDIOVASCULAR: Regular rate and rhythm without murmurs, gallops, or rubs. RESPIRATORY: Moderate air entry, diffuse coarse sound, no appreciable wheezing. No accessory muscle use. GASTROINTESTINAL: Abdomen soft, non-tender, nondistended. MUSCULOSKELETAL: No cyanosis, or edema. BACK: Nontender without obvious deformity. No CVA tenderness. Pt update on day of discharge Patient is doing much better. He reports no chest pain, SOB, fever, chills. Hospital Course This is a 76-year-old male with a PMH of HTN, CAD, CHF (Cardiac Cath 10/05/12 w EF 35%) and COPD who presented to the ER on 04/23/2017 w/ complaints of SOB and cough for approx 2 wks. Seen at [facility] for similar symptoms 1 wk ago prior to this admission, given steroids w/ minimal improvement. BNP was 508. Troponins were slightly elevated and Cardiology evaluated patient. No further cardiac work up recommended at this time. - Acute COPD exacerbation - Patient was recently admitted at another hospital. However, no resolution of his symptoms. - IV Solu-medrol 40mg Q6hrs, DuoNeb Q4hrs and PRN. Continue Symbicort. - Levaquin 750mg Qday PO X 7 days. - If symptoms are not improved by tomorrow, we will consider obtaining CT chest on 04/25/2017. - Probable congestive heart failure - systolic - Cardiac cath 2012 --> EF 35%. Echo this admission shows EF 30-35%. - Received Lasix IV 20mg BID and will switch to PO Torsemide on discharge. - Cardiology cleared for discharge. - Patient's symptoms were likely multifactorial including CHF as well as COPD exacerbation. - BNP was over 500. - CAD - no acute issues. Troponins 0.13 - 0.16 likely due to pulmonary issues. - Continue Aspirin 81mg Qday, Plavix 75mg Qday - Continue Carvedilol 25mg BID. - Continue Fenofibrate 48mg Qday - Hypertension - Continue Valsartan 80mg Qday Full code. Lovenox. Pt Condition on Discharge: Good Discharge Disposition: Discharge Home Discharge Time: > 30 minutes Discharge Instructions DIET: Follow Instructions for: Heart Healthy Diet Activities you can perform: Regular-No Restrictions Follow up Referrals: PCP Follow-up - 1 Week Pulmonology - 1 Week with Tanvir Encarnacion MD New Medications: Prednisone (Prednisone) 20 Mg Tab 20 MG PO BID for Inflammation, #10 TAB 0 Refills Torsemide (Torsemide) 10 Mg Tab 10 MG PO BID for fluid, #60 TAB 0 Refills Levofloxacin (Levaquin) 750 Mg Tablet 750 MG PO DAILY for Infection, #6 TAB [Budeson-Formot 160-4.5 Mcg Inh] () 60 PUFF AERO 2 PUFF INH Q12HR for Breathing, #1 CAN 5 Refills Continued Medications: Albuterol 8.5 GM Inh (Proair Hfa 8.5 GM Inh) 90 Mcg/Act Aer 1 PUFF INH Q4H PRN for SHORTNESS OF BREATH, #1 INHALER 7 Refills (This prescription has been renewed) 108 mcg/actuation Aspirin (Aspirin) 81 Mg Chew 81 MG CHEW DAILY, TAB 0 Refills Carvedilol (Coreg) 25 Mg Tab 25 MG PO BID, #60 TAB 0 Refills Clopidogrel (Plavix) 75 Mg Tab 75 MG PO DAILY for Blood Clot Prevention, #30 TAB 0 Refills Fenofibrate (Fenofibrate) 54 Mg Tab 54 MG PO DAILY, #90 TAB 3 Refills Finasteride (Proscar) 5 Mg Tab 5 MG PO DAILY for Manage Prostate Problems, #90 TAB 3 Refills Do not crush. Meloxicam (Meloxicam) 15 Mg Tab 15 MG PO DAILY for Arthritis Pain, #30 TAB 0 Refills Multiple Vitamins W/ Minerals (Centrum) 1 Chew 1 TAB CHEW DAILY for Nutritional Supplement, TAB 0 Refills Nitroglycerin SL (Nitroglycerin SL) 0.4 Mg Subl 0.4 MG SL DIRECTED PRN for CHEST PAIN, #100 TAB.SL 0 Refills ONE TABLET UNDER THE TONGUE NEEDED FOR CHEST PAIN, MAY REPEAT EVERY FIVE MINUTES FOR A TOTAL OF 3 DOSES OR CALL 911 IF NO RELIEF Valsartan (Valsartan) 80 Mg Tab 80 MG PO DAILY, #30 TAB 0 Refills Discontinued Medications: Furosemide (Lasix) 40 Mg Tab 40 MG PO BID, #60 TAB 3 Refills Skinny Lowe DO Apr 25, 2017 14:45
[2017-04-25] MEDS ORDERED: TORS10TA2 PO (14:46)
--- NOTE | 2017-04-25 17:14 | ECHRPT ---
Indication: cardiomyopathy CONCLUSIONS Normal left ventricular size. The left ventricular systolic function is severely reduced with an estimated ejection fraction in th e range of 30-35%. The left atrial size is mildly dilated. Trace mitral valve regurgitation. No aortic valve stenosis. No aortic valve regurgitation. There is mild tricuspid valve regurgitation. The estimated pulmonary arterial pressure is 59.6 mmHg. BP: / HR: Rhythm: MEASUREMENTS (Male / Female) Normal Values Technical Quality:Good 2D ECHO LV Diastolic Diameter PLAX 6.4 cm 4.2 - 5.9 / 3.9 - 5.3 cm LV Systolic Diameter PLAX 5.6 cm IVS Diastolic Thickness 1.1 cm 0.6 - 1.0 / 0.6 - 0.9 cm LVPW Diastolic Thickness 0.9 cm 0.6 - 1.0 / 0.6 - 0.9 cm LV Relative Wall Thickness 0.3 RV Internal Dim ED PLAX 4.3 cm M-MODE Aortic Root Diameter MM 4.1 cm LA Systolic Diameter MM 4.5 cm LA Ao Ratio MM 1.1 AV Cusp Separation MM 2.1 cm DOPPLER LV E' Lateral Velocity 6.8 cm/s LV E' Septal Velocity 4.2 cm/s TR Peak Velocity 352.0 cm/s TR Peak Gradient 49.6 mmHg Right Atrial Pressure 10.0 mmHg Pulmonary Artery Systolic Pressu 59.6 mmHg Right Ventricular Systolic Press 59.6 mmHg FINDINGS LEFT VENTRICLE Normal left ventricular size. The left ventricular systolic function is severely reduced with an estimated ejection fraction in th e range of 30-35%. RIGHT VENTRICLE Normal right ventricular size and systolic function. LEFT ATRIUM The left atrial size is mildly dilated. 4.5 cm RIGHT ATRIUM The right atrial size is normal. ATRIAL SEPTUM Normal atrial septal thickness without atrial level shunting by limited color doppler interrogation. AORTA Aortic root 4.1 MITRAL VALVE Structurally normal mitral valve. Trace mitral valve regurgitation. AORTIC VALVE Trileaflet aortic valve. No aortic valve stenosis. No aortic valve regurgitation. TRICUSPID VALVE Structurally normal tricuspid valve. There is mild tricuspid valve regurgitation. The estimated pulmonary arterial pressure is 59.6 mmHg. PULMONARY VALVE No pulmonary valve regurgitation or stenosis. VESSELS The inferior vena cava is normal in size. PERICARDIUM No pericardial effusion. Fab Yeboah MD (Electronically Signed) Final Date:25 April 2017 17:13
== END 2017-04-25 17:03 | disposition home or self-care (01) | DRG 190 ==
LOC: NEPE 16:46 → UNDOADMIN 22:15 → NEDA 22:15 → NEPHCDU 04-24 00:22
PROVIDERS: ADMIT Hospitalist; ATTEND Hospitalist
DX: J44.1 Chronic obstructive pulmonary disease with (acute) exacerbation (principal); I11.0 Hypertensive heart disease with heart failure; I50.23 Acute on chronic systolic (congestive) heart failure; I25.10 Atherosclerotic heart disease of native coronary artery without angina pectoris; Z95.1 Presence of aortocoronary bypass graft; Z95.5 Presence of coronary angioplasty implant and graft; I25.5 Ischemic cardiomyopathy; G47.30 Sleep apnea, unspecified; E78.5 Hyperlipidemia, unspecified; Z85.72 Personal history of non-Hodgkin lymphomas; Z87.891 Personal history of nicotine dependence; Z79.82 Long term (current) use of aspirin
CPT/HCPCS: 71045; 80053; 82550; 83880; 84484; 85025; 87804; 93005; 93306; 94640; 94664; 96374; 96375; J1650; J1940; J2920; J2930

== ENCOUNTER 2017-08-09 14:16 | Day surgery (SDC) | payer MEDICARE, OTHER ==
[~2017-08-09 14:16] MED LIST changes: +Budeson-Formot 160-4.5 Mcg Inh INH; -FURO1TAB60 PO; +LEVA750T9 PO; -POTA10CA PO; +PRED20 PO; -ROSU40 PO; -TIZA2CAP3 PO; +TORS10TA2 PO
[2017-08-09] MEDS ORDERED: FEXO15TA PO (14:33)
[2017-08-09] MEDS ORDERED: PANT40TA3 PO (14:33)
[2017-08-09] MEDS ORDERED: ADVA250A INH (14:33)
[2017-08-09 14:37] VITALS: BP 136/83; PULSE 76; RESP 20; O2SAT 93
[2017-08-09 15:11] LABS: AUTOMATED NEUTROPHIL # 5.4 TH/MM3 (1.8-7.7); BASOPHIL % 0.6 % (0.0-2.0); EOSINOPHIL # 0.2 TH/MM3 (0-0.4); EOSINOPHIL % 2.6 % (0.0-4.0); HEMATOCRIT 41.8 % (39.0-51.0); HEMOGLOBIN 13.7 GM/DL (13.0-17.0); LYMPH % 19.6 % (9.0-44.0); LYMPHOCYTE # 1.5 TH/MM3 (1.0-4.8); MEAN CELL VOLUME 89.4 FL (80.0-100.0); MEAN CORPUSCULAR HEMOGLOBIN 29.4 PG (27.0-34.0); MEAN CORPUSCULAR HGB CONC 32.9 % (32.0-36.0); MEAN PLATELET VOLUME 9.7 FL (7.0-11.0); MONO % 6.5 % (0.0-8.0); MONOCYTE # 0.5 TH/MM3 (0-0.9); NEUT % 70.7 % (16.0-70.0); PLATELET COUNT 137 TH/MM3 (150-450); RED BLOOD COUNT 4.67 MIL/MM3 (4.50-5.90); RED CELL DISTRIBUTION WIDTH 16.3 % (11.6-17.2); WHITE BLOOD COUNT 7.6 TH/MM3 (4.0-11.0)
[2017-08-09 15:31] LABS: TOTAL PROTEIN 6.9 GM/DL (6.4-8.2)
[2017-08-09 15:40] LABS: INTERNATIONAL NORMALIZED RATIO 1.1 RATIO; PROTHROMBIN TIME - PATIENT 11.5 SEC (9.8-11.6)
--- NOTE | 2017-08-09 16:04 | RADRPT ---
EXAM DATE/TIME: 08/09/2017 14:48 [facility] COMPARISON: No previous studies available for comparison. EXTERNAL COMPARISON : [facility], CT CHEST W/O CONTRAST, August 01, 2017, XR CHEST PA & LAT, August 08, 2016, November, CT CHEST W/CONTRAST, December 17, 2012. INDICATIONS : Right pleural effusion. MEDICAL HISTORY : Myocardial infarction. Congestive heart failure. Hypercholesterolemia. Coronary artery disease. Hyper lipidemia. HTN. COPD. Carcinoma, lung. Lymphoma. SURGICAL HISTORY : CABG. Coronary artery stent. Appendectomy. Mastectomy. Right wrist excision skin lesion. ENCOUNTER: Initial ACUITY: 1 day PAIN SCORE: 0/10 LOCATION: Right chest MEASUREMENTS: SKIN TO PARIETAL PLEURA: 1.8 cm SKIN TO MAX SAFE DEPTH: 3.4 cm ESTIMATED FLUID VOLUME: 522 cc FLUID COMPOSITION: simple FINDINGS: Pleural effusion as above. A leeanne was placed on the skin surface superficial to the pleural fluid col lection. CONCLUSION: Right pleural effusion, marked. 500 cc volume.. Micha Romo MD FACR on August 09, 2017 at 16:01 Board Certified Radiologist. This report was verified electronically.
[2017-08-09 16:30] VITALS: BP 129/79; PULSE 73; RESP 20; O2SAT 93
--- NOTE | 2017-08-09 16:37 | RADRPT ---
EXAM DATE/TIME: 08/09/2017 16:18 [facility] COMPARISON: CHEST SINGLE AP, April 23, 2017, 19:29. INDICATIONS : Status post thoracentesis. MEDICAL HISTORY : Myocardial infarction. Congestive heart failure. Hypercholesterolemia. Coronaryartery disease. Hyperl ipidemia. HTN. COPD. Carcinoma, lung. Lymphoma SURGICAL HISTORY : CABG. Coronary artery stent. Appendectomy. Mastectomy. Right wrist excision skin lesion ENCOUNTER: Subsequent ACUITY: 1 day PAIN SCORE: 3/10 LOCATION: Bilateral chest FINDINGS: The heart is enlarged. There is diffuse interstitial prominence and bilateral effusions consistent wi th congestive failure. The patient is post median sternotomy. The visualized bony structures are grossly intact. CONCLUSION: 1. No acute cardiopulmonary findings. Jimenez Romo MD on August 09, 2017 at 16:34 Board Certified Radiologist. This report was verified electronically.
--- NOTE | 2017-08-09 16:49 | MR ---
cc: Tanvir Encarnacion MD, Glenn H MD Heyen,Stevie BAIN DATE: 08/09/2017 DATE OF PROCEDURE: 08/09/2017. PROCEDURE PERFORMED: Right thoracentesis. PREOPERATIVE DIAGNOSIS: Right pleural effusion. DESCRIPTION OF PROCEDURE: Informed consent was obtained from the patient. The procedure and the complications, including complication of anesthesia, pneumothorax requiring chest tube, bleeding complication, injury to the blood vessel, lungs, nose, arrhythmia and hypoxia were explained and he consented for the procedure. Next, the right side of the chest was marked with ultrasound. The chest was cleaned with ChloraPrep. 1% lidocaine infiltration anesthesia was used. With a 16 gauge Angiocath, thoracentesis was done. Pinkish fluid was obtained. He was hooked up to a vacuum bottle. About 1000 mL of fluid was removed, then the fluid stopped coming and the procedure was terminated. He tolerated the procedure well. Pleural fluid sent for protein, glucose, LDH, cell count and differential, routine culture, AFB, fungal culture and cytology. Post-procedure chest x-ray ordered to rule out pneumothorax. MD OLGA Montemayor/SB , 04:06 PM , 04:48 PM
[2017-08-09 17:42] LABS: TOTAL PROTEIN,PLEURAL FLUID 1.3 GM/DL
[2017-08-09 19:33] LABS: PLEURAL FLUID EOS 1 %; PLEURAL FLUID HISTIOCYTES 60 %; PLEURAL FLUID LYMPHS 13 %; PLEURAL FLUID MESOTHELIAL 19 %; PLEURAL FLUID POLYS (SEGS) 7 %
[2017-08-09 19:35] LABS: PLEURAL FLUID WBC 1108 /MM3 (0-10)
[2017-08-09 19:36] LABS: PLEURAL FLUID RBC 4671 /MM3 (0-0)
== END 2017-08-09 16:45 | disposition home or self-care (01) ==
LOC: EDSTATUS 14:16 → HRAD 14:16 → HRIP 14:17 → HRAD 16:45
PROVIDERS: ATTEND Specialist
DX: J90 Pleural effusion, not elsewhere classified (principal); I11.0 Hypertensive heart disease with heart failure; I50.9 Heart failure, unspecified; I25.10 Atherosclerotic heart disease of native coronary artery without angina pectoris; J44.9 Chronic obstructive pulmonary disease, unspecified; E78.00 Pure hypercholesterolemia, unspecified; I25.2 Old myocardial infarction; Z95.5 Presence of coronary angioplasty implant and graft; Z95.1 Presence of aortocoronary bypass graft; Z85.118 Personal history of other malignant neoplasm of bronchus and lung
CPT/HCPCS: 32554; 71045; 76604; 82945; 82947; 83615; 83986; 84155; 84157; 85025; 85610; 85730; 87015; 87070; 87102; 87116; 87205; 87206; 88112; 89051

== ENCOUNTER 2017-08-13 09:08 | Inpatient (IN) | payer MEDICARE, OTHER ==
[2017-08-13] VITALS (8 sets, daily range): BP systolic 131–143; BP diastolic 63–85; PULSE 71–92; RESP 14–22; TEMP 97.5–98; O2SAT 93–97
[~2017-08-13] VITALS: Ht 182.9 cm; Wt 92.3 kg
[~2017-08-13 09:08] MED LIST changes: +ADVA250A INH; -Budeson-Formot 160-4.5 Mcg Inh INH; +FEXO15TA PO; -LEVA750T9 PO; -MELO15TA20 PO; +PANT40TA3 PO; -PLAV75TA29 PO; -PRED20 PO
[2017-08-13] MEDS ORDERED: SODIUM CHLORIDE 0.9% FLUSH 10 ML FLUSH IVF PRN (09:45)
[2017-08-13 10:10] LABS: BASOPHIL # 0.1 TH/MM3 (0-0.2); BASOPHIL % 0.7 % (0.0-2.0); EOSINOPHIL # 0.2 TH/MM3 (0-0.4); EOSINOPHIL % 2.4 % (0.0-4.0); HEMATOCRIT 40.2 % (39.0-51.0); HEMOGLOBIN 13.3 GM/DL (13.0-17.0); LYMPHOCYTE # 1.2 TH/MM3 (1.0-4.8); MEAN CELL VOLUME 89.2 FL (80.0-100.0); MEAN CORPUSCULAR HEMOGLOBIN 29.4 PG (27.0-34.0); MEAN PLATELET VOLUME 9.8 FL (7.0-11.0); MONO % 5.7 % (0.0-8.0); MONOCYTE # 0.4 TH/MM3 (0-0.9); NEUT % 76.2 % (16.0-70.0); PLATELET COUNT 120 TH/MM3 (150-450); RED BLOOD COUNT 4.51 MIL/MM3 (4.50-5.90); RED CELL DISTRIBUTION WIDTH 16.3 % (11.6-17.2); WHITE BLOOD COUNT 7.9 TH/MM3 (4.0-11.0)
[2017-08-13 10:20] LABS: INTERNATIONAL NORMALIZED RATIO 1.1 RATIO; PROTHROMBIN TIME - PATIENT 11.2 SEC (9.8-11.6)
[2017-08-13 10:21] LABS: ALBUMIN 3.4 GM/DL (3.4-5.0); AST (GOT) 17 U/L (15-37); BICARBONATE 28.3 MEQ/L (21.0-32.0); BLOOD UREA NITROGEN 15 MG/DL (7-18); CALCIUM 8.8 MG/DL (8.5-10.1); CHLORIDE 106 MEQ/L (98-107); GLOMERULAR FILTRATION RATE 65 ML/MIN (>89); GLUCOSE,RANDOM 132 MG/DL (74-106); SODIUM (NA) 142 MEQ/L (136-145)
[2017-08-13 10:23] LABS: ALT (GPT) 16 U/L (12-78)
[2017-08-13 10:25] LABS: ALKALINE PHOSPHATASE 71 U/L (45-117); TOTAL PROTEIN 6.6 GM/DL (6.4-8.2)
--- NOTE | 2017-08-13 10:55 | RADRPT ---
EXAM DATE/TIME: 08/13/2017 09:50 [facility] COMPARISON: CHEST SINGLE AP, August 09, 2017, 16:18. INDICATIONS : Shortness of breath after right pleural effusion. MEDICAL HISTORY : Myocardial infarction. Congestive heart failure. Hypercholesterolemia. Coronary artery disease. Hyper lipidemia. HTN. COPD. Carcinoma, lung. Lymphoma. SURGICAL HISTORY : CABG. Coronary artery stent. Appendectomy. Mastectomy. Right wrist excision skin lesion. ENCOUNTER: Initial ACUITY: 3 days PAIN SCORE: 0/10 LOCATION: Bilateral chest FINDINGS: There is increasing parenchymal opacity in the lower lungs bilaterally with partial consolidation in the left lower lung and patchy infiltrates in the right lower lung. Portions of the right hemidiaphr agm are still discernible. Stable cardiomegaly. CONCLUSION: Increasing bilateral lower lung infiltrates. Cristian Mullins MD on August 13, 2017 at 10:53 Board Certified Radiologist. This report was verified electronically.
[2017-08-13] MEDS ORDERED: FUROSEMIDE 40 MG/4 ML VIAL IV PUSH ONE (11:15)
[2017-08-13] MEDS ORDERED: POTASSIUM CHLORIDE 20 MEQ CONTROLLED RELEASE TAB PO ONE (11:15)
--- NOTE | 2017-08-13 11:17 | PD ---
HPI Chief Complaint: Respiratory Distress Time Seen by Provider: 09:25 Travel History International Travel<30 days: No Contact w/Intl Traveler<30days: No Traveled to known affect area: No History of Present Illness HPI Patient 76-year-old male presents emergency department with a gradually worsening shortness of breath and leg swelling over the past few days. He reports a history of congestive heart failure secondary to coronary artery disease and a CABG is followed by Dr. Andrade. He self reports that his last EF was on the order of 10% he scheduled to have a defibrillator implanted later this month. He states his been taking his torsemide and other medications as prescribed but continues to have shortness of breath. He did have a thoracentesis about a week ago removing about 1000 cc from his right lung. He denies any chest pain abdominal pain nausea vomiting or fevers. States symptoms for the past week, gradually worsening, context and associated signs and symptoms as above. PFSH Past Medical History Cancer: Yes (lung/ lymphoma-1999) Cardiovascular Problems: Yes High Cholesterol: Yes Congestive Heart Failure: Yes COPD: Yes Coronary Artery Disease: Yes Diabetes: No Hypertension: Yes Respiratory: Yes Past Surgical History Appendectomy: Yes Cardiac Surgery: Yes ("TRIPLE BYPASS", STENTS X2) Social History Alcohol Use: No Tobacco Use: No Substance Use: No Allergies-Medications (Allergen,Severity, Reaction): Coded Allergies: No Known Allergies (Verified Adverse Reaction, Unknown, 08/13/17) Reported Meds & Prescriptions Reported Meds & Active Scripts Active Torsemide 10 Mg Tab 10 Mg PO BID Proair Hfa 8.5 GM Inh (Albuterol Sulfate) 90 Mcg/Act Aer 1 Puff INH Q4H PRN 108 mcg/actuation Proscar (Finasteride) 5 Mg Tab 5 Mg PO DAILY Do not crush. Fenofibrate 54 Mg Tab 54 Mg PO DAILY Reported Advair Diskus Inh (Fluticasone-Salmeterol Inh) 250-50 Mcg/Blist Aer 1 Puff INH BID Rinse mouth after use. Rae Allergy (Fexofenadine HCl) 180 Mg Tab 180 Mg PO DAILY Pantoprazole (Pantoprazole Sodium) 40 Mg Tab 40 Mg PO DAILY Valsartan 80 Mg Tab 80 Mg PO DAILY Coreg (Carvedilol) 25 Mg Tab 25 Mg PO BID Aspirin 81 Mg Chew 81 Mg CHEW DAILY Centrum (Multiple Vitamins W/ Minerals) 1 Chew 1 Tab CHEW DAILY Nitroglycerin SL (Nitroglycerin) 0.4 Mg Subl 0.4 Mg SL DIRECTED PRN ONE TABLET UNDER THE TONGUE NEEDED FOR CHEST PAIN, MAY REPEAT EVERY FIVE MINUTES FOR A TOTAL OF 3 DOSES OR CALL 911 IF NO RELIEF Review of Systems Except as stated in HPI: all other systems reviewed are Neg Physical Exam Narrative GENERAL: Well-developed well-nourished, appears mildly short of breath, nontoxic appearance peer SKIN: Focused skin assessment warm/dry. HEAD: Atraumatic. Normocephalic. EYES: Pupils equal and round. No scleral icterus. No injection or drainage. ENT: No nasal bleeding or discharge. Mucous membranes pink and moist. NECK: Trachea midline. No JVD. CARDIOVASCULAR: Regular rate and rhythm. No murmur appreciated. RESPIRATORY: No accessory muscle use. Bibasilar faint rales, tachypnea, no dullness to percussion is appreciated. Breath sounds equal bilaterally. Speaks in short phrases. GASTROINTESTINAL: Abdomen soft, non-tender, nondistended. Hepatic and splenic margins not palpable. MUSCULOSKELETAL: No obvious deformities. No clubbing. No cyanosis. No edema. NEUROLOGICAL: Awake and alert. No obvious cranial nerve deficits. Motor grossly within normal limits. Normal speech. PSYCHIATRIC: Appropriate mood and affect; insight and judgment normal. Data Data Last Documented VS Vital Signs Date Time Temp Pulse Resp B/P (MAP) Pulse Ox O2 Delivery O2 Flow Rate FiO2 08/13/17 10:19 20 97 Nasal Cannula 3.00 08/13/17 09:15 98.0 83 140/85 (103) Orders Orders Chest, Single Ap (08/13/17 ) Electrocardiogram (08/13/17 09:37) B-Type Natriuretic Peptide (08/13/17 09:37) Complete Blood Count With Diff (08/13/17 09:37) Comprehensive Metabolic Panel (08/13/17 09:37) Magnesium (Mg) (08/13/17 09:37) Prothrombin Time / Inr (Pt) (08/13/17 09:37) Act Partial Throm Time (Ptt) (08/13/17 09:37) Ecg Monitoring (08/13/17 09:37) Iv Access Insert/Monitor (08/13/17 09:37) Oximetry (08/13/17 09:37) Oxygen Administration (08/13/17 09:37) Sodium Chloride 0.9% Flush (Ns Flush) (08/13/17 09:45) Potassium Chloride (Kcl) (08/13/17 11:15) Potassium Chlor 20 Meq Premix (Kcl 20 Me (08/13/17 11:15) Furosemide Inj (Lasix Inj) (08/13/17 11:15) Troponin I (08/13/17 11:11) Admit Order (Ed Use Only) (08/13/17 ) Labs Laboratory Tests Test 08/13/17 09:48 White Blood Count 7.9 TH/MM3 Red Blood Count 4.51 MIL/MM3 Hemoglobin 13.3 GM/DL Hematocrit 40.2 % Mean Corpuscular Volume 89.2 FL Mean Corpuscular Hemoglobin 29.4 PG Mean Corpuscular Hemoglobin Concent 33.0 % Red Cell Distribution Width 16.3 % Platelet Count 120 TH/MM3 Mean Platelet Volume 9.8 FL Neutrophils (%) (Auto) 76.2 % Lymphocytes (%) (Auto) 15.0 % Monocytes (%) (Auto) 5.7 % Eosinophils (%) (Auto) 2.4 % Basophils (%) (Auto) 0.7 % Neutrophils # (Auto) 6.0 TH/MM3 Lymphocytes # (Auto) 1.2 TH/MM3 Monocytes # (Auto) 0.4 TH/MM3 Eosinophils # (Auto) 0.2 TH/MM3 Basophils # (Auto) 0.1 TH/MM3 CBC Comment DIFF FINAL Differential Comment Prothrombin Time 11.2 SEC Prothromb Time International Ratio 1.1 RATIO Activated Partial Thromboplast Time 27.1 SEC Blood Urea Nitrogen 15 MG/DL Creatinine 1.10 MG/DL Random Glucose 132 MG/DL Total Protein 6.6 GM/DL Albumin 3.4 GM/DL Calcium Level 8.8 MG/DL Magnesium Level 2.0 MG/DL Alkaline Phosphatase 71 U/L Aspartate Amino Transf (AST/SGOT) 17 U/L Alanine Aminotransferase (ALT/SGPT) 16 U/L Total Bilirubin 1.0 MG/DL Sodium Level 142 MEQ/L Potassium Level 3.1 MEQ/L Chloride Level 106 MEQ/L Carbon Dioxide Level 28.3 MEQ/L Anion Gap 8 MEQ/L Estimat Glomerular Filtration Rate 65 ML/MIN Troponin I 0.18 NG/ML B-Type Natriuretic Peptide 1023 PG/ML MDM Medical Decision Making Medical Screen Exam Complete: Yes Emergency Medical Condition: Yes Interpretation(s) EKG shows no concerning ST segment changes, nonspecific R SR prime pattern likely representing or incomplete right bundle branch block. Differential Diagnosis CHF exacerbation, pleural effusion, pneumonia seems unlikely, acute coronary syndrome seems unlikely. Narrative Course Patient room to the emergency department, certainly has an increased work of breathing probably secondary to CHF exacerbation his chest x-ray does show small pleural effusion on the right side as well as bilateral pulmonary infiltrates. He does have pedal edema and I think this goes along with a CHF exacerbation. BNP is minimally elevated to 1000, his potassium is low was replaced orally as well as IV and the patient was given Lasix 40 mg IV for start. He will require admission for increasing diuresis given his hypoxia. Discussed with the residents on-call clinic Dr. Chanel for admission Diagnosis Primary Impression: CHF exacerbation Additional Impression: Acute respiratory failure with hypoxia Admitting Information Admitting Physician Requests: Admit Condition: Stable Otis Maria MD August 13, 2017 11:17
[2017-08-13] MEDS: POTASSIUM CHLOR 20 MEQ PREMIX 100 ML IV SCH ×2 (11:42→17:01)
--- NOTE | 2017-08-13 12:47 | HHI.HP ---
HPI Service Family Medicine Primary Care Physician Stevie Hartman MD Admission Diagnosis CHF exacerbation, Hypoxic respiratory failure. Diagnoses: International Travel<30 Days: No Contact w/Intl Traveler<30days: No Known Affected Area: No History of Present Illness 76 yo male with h/o COPD, CHF with recent Echo in office of window covering sales consultant Dr. Andrade showing EF of 20% per patient report presents with increased SOB associated with orthopnea and lower extremity edema since Monday. He recently had a pleuracentesis by Dr. Encarnacion (vacuum cleaner assembler) for a large pleural effusion ( done 08/09). This improved his breathing significantly but then it worsened on Monday and got steadily worse sense then. Of note the pleural fluid was analyzed and was negative for malignant cells. There is no associated chest pain , though he does note some tightness of the chest and abdomen worse on inspiration. Review of Systems Constitutional: DENIES: Fatigue, Fever, Chills Endocrine: DENIES: Polydipsia, Polyuria Eyes: DENIES: Vision loss Ears, nose, mouth, throat: DENIES: Nasal discharge, Throat pain, Sinus Pain Respiratory: COMPLAINS OF: Cough, Shortness of breath, DENIES: Wheezing, Sputum production Cardiovascular: COMPLAINS OF: Dyspnea on Exertion, Lower Extremity Edema, Orthopnea, DENIES: Chest pain, Palpitations Gastrointestinal: DENIES: Abdominal pain, Black stools, Bloody stools, Constipation, Diarrhea Genitourinary: COMPLAINS OF: Urinary frequency, DENIES: Dysuria Musculoskeletal: DENIES: Muscle aches Integumentary: DENIES: Rash Hematologic/lymphatic: DENIES: Bruising Immunologic/allergic: DENIES: Urticaria Neurologic: DENIES: Headache, Localized weakness Psychiatric: DENIES: Anxiety, Depression Past Family Social History Past Medical History CHF COPD Pre-diabetes (A1C 6.3 in 2016) Past Surgical History CABG x3 - 1998 Coronary stenting - 2013 Reported Medications Reported Meds & Active Scripts Active Torsemide 10 Mg Tab 10 Mg PO BID Proair Hfa 8.5 GM Inh (Albuterol Sulfate) 90 Mcg/Act Aer 1 Puff INH Q4H PRN 108 mcg/actuation Proscar (Finasteride) 5 Mg Tab 5 Mg PO DAILY Do not crush. Fenofibrate 54 Mg Tab 54 Mg PO DAILY Reported Advair Diskus Inh (Fluticasone-Salmeterol Inh) 250-50 Mcg/Blist Aer 1 Puff INH BID Rinse mouth after use. Rae Allergy (Fexofenadine HCl) 180 Mg Tab 180 Mg PO DAILY Pantoprazole (Pantoprazole Sodium) 40 Mg Tab 40 Mg PO DAILY Valsartan 80 Mg Tab 80 Mg PO DAILY Coreg (Carvedilol) 25 Mg Tab 25 Mg PO BID Aspirin 81 Mg Chew 81 Mg CHEW DAILY Centrum (Multiple Vitamins W/ Minerals) 1 Chew 1 Tab CHEW DAILY Nitroglycerin SL (Nitroglycerin) 0.4 Mg Subl 0.4 Mg SL DIRECTED PRN ONE TABLET UNDER THE TONGUE NEEDED FOR CHEST PAIN, MAY REPEAT EVERY FIVE MINUTES FOR A TOTAL OF 3 DOSES OR CALL 911 IF NO RELIEF Allergies: Coded Allergies: No Known Allergies (Verified Adverse Reaction, Unknown, 08/13/17) Active Ordered Medications Current Medications Medications (Trade) Dose Ordered Sig/Matt Route Start Time Stop Time Status Last Admin Potassium Chloride 100 ml @ 50 mls/hr Q2H IV 08/13/17 11:15 08/13/17 15:14 08/13/17 11:42 (NS Flush) 2 ml BID IV FLUSH 08/13/17 21:00 (NS Flush) 2 ml UNSCH PRN IV FLUSH 08/13/17 13:00 (Lasix Inj) 40 mg BID@09,18 IVP 08/13/17 18:00 (KCl) 20 meq BID PO 08/13/17 21:00 (Lovenox Inj) 40 mg Q24H SQ 08/13/17 14:00 (Aspirin Chew) 81 mg DAILY CHEW 08/14/17 09:00 (Coreg) 25 mg BID PO 08/13/17 21:00 (Proscar) 5 mg DAILY PO 08/14/17 09:00 (Theragran M Tab) 1 tab DAILY PO 08/14/17 09:00 (Protonix) 40 mg DAILY PO 08/14/17 09:00 (Tricor) 48 mg DAILY PO 08/14/17 09:00 (Claritin) 10 mg DAILY PO 08/14/17 09:00 (Symbicort 160-4.5 Mcg Inh) 2 puff BID INH 08/13/17 21:00 Family History Brother - Heart Disease Social History Tob - smoked 1 PPD for ~20 years. Quit > 5 years ago Alc - none Drugs - none Former (army) Physical Exam Vital Signs Vital Signs Date Time Temp Pulse Resp B/P (MAP) Pulse Ox O2 Delivery O2 Flow Rate FiO2 08/13/17 10:19 20 97 Nasal Cannula 3.00 08/13/17 10:19 97 Nasal Cannula 3.00 08/13/17 09:24 14 93 Nasal Cannula 2.00 08/13/17 09:23 88 Room Air 08/13/17 09:15 98.0 83 22 140/85 (103) 94 Physical Exam GENERAL: WDWN adult white male with normal body habitus sitting up in bed. NC in place. SKIN: No rashes, ecchymoses or lesions. Cool and dry. HEAD: NC/AT EYES: PERRL. EOMI. No conjunctival injection or drainage. ENT: MMM, OP without erythema, tonsillar swelling, or exudate. NECK: Supple, no lymphadenopathy. CARDIOVASCULAR: NRRR. Normal S1/S2. No MRG RESPIRATORY: Increased work of breathing, able to speak in short sentences. Inspiratory crackles bilaterally up to mid lung [place]. GASTROINTESTINAL: Abdomen soft, non-distended, non-tender. No hepato- splenomegaly or palpable masses. MUSCULOSKELETAL: 1+ edema of BLE about 1/[address] up cohn NEUROLOGICAL: Awake and alert. Cranial nerves II through XII grossly intact. Moves all extremities without difficulty. Normal speech. Laboratory Laboratory Tests Test 08/13/17 09:48 White Blood Count 7.9 Red Blood Count 4.51 Hemoglobin 13.3 Hematocrit 40.2 Mean Corpuscular Volume 89.2 Mean Corpuscular Hemoglobin 29.4 Mean Corpuscular Hemoglobin Concent 33.0 Red Cell Distribution Width 16.3 Platelet Count 120 Mean Platelet Volume 9.8 Neutrophils (%) (Auto) 76.2 Lymphocytes (%) (Auto) 15.0 Monocytes (%) (Auto) 5.7 Eosinophils (%) (Auto) 2.4 Basophils (%) (Auto) 0.7 Neutrophils # (Auto) 6.0 Lymphocytes # (Auto) 1.2 Monocytes # (Auto) 0.4 Eosinophils # (Auto) 0.2 Basophils # (Auto) 0.1 CBC Comment DIFF FINAL Differential Comment Prothrombin Time 11.2 Prothromb Time International Ratio 1.1 Activated Partial Thromboplast Time 27.1 Blood Urea Nitrogen 15 Creatinine 1.10 Random Glucose 132 Total Protein 6.6 Albumin 3.4 Calcium Level 8.8 Magnesium Level 2.0 Alkaline Phosphatase 71 Aspartate Amino Transf (AST/SGOT) 17 Alanine Aminotransferase (ALT/SGPT) 16 Total Bilirubin 1.0 Sodium Level 142 Potassium Level 3.1 Chloride Level 106 Carbon Dioxide Level 28.3 Anion Gap 8 Estimat Glomerular Filtration Rate 65 Troponin I 0.18 B-Type Natriuretic Peptide 1023 Result Diagram: 08/13/17 0948 08/13/17 0948 Imaging Last Impressions Chest X-Ray 08/13/17 0000 Signed Impressions: Service Date/Time: Sunday, August 13, 2017 09:50 - CONCLUSION: Increasing bilateral lower lung infiltrates. Cristian Mullins MD EKG - Sinus rhythm, normal rate, ST depressions and T-wave inversions in V1-V6, improved from previous EKG in March [facility] VTE Risk Assessment [facility] Risk Assessment: Mod/High Risk (score >= 2) Assessment and Plan Assessment and Plan 76 yo with severe CHF presenting with: Problem List: (1) Acute exacerbation of CHF (congestive heart failure) ICD Codes: I50.9 - Heart failure, unspecified Status: Acute Plan: Exam and history classic for CHF exacerbation BNP > 1000 CXR with pulmonary edema -Lasix 40 mg IV BID -1.5 L fluid restriction -2 gm sodium restriction -Continue home Coreg -Hold home valsartan; patient's window covering sales consultant Dr. Andrade may want to switch to Entresto (had been discussing with patient as outpatient) -Consult Dr. Andrade to discuss -Strict I&Os -CHF education (2) Elevated troponin ICD Codes: R74.8 - Abnormal levels of other serum enzymes Status: Chronic Plan: On record review troponin ranges from 0.12-0.15 Initial troponin 0.18 EKG changes noted above, actually improved from Mar -Obtain 2nd troponin/EKG at 6 hours from first -If still asymptomatic discontinue checks (3) CAD (coronary artery disease) ICD Codes: I25.10 - Atherosclerotic heart disease of jamul coronary artery without angina pectoris Status: Chronic Plan: Stable, asymptomatic at present -ASA daily -Will order NTG if patient develops chest pain (4) COPD (chronic obstructive pulmonary disease) ICD Codes: J44.9 - Chronic obstructive pulmonary disease, unspecified Status: Chronic Plan: Stable -Continue home Advair -DuoNebs PRN (5) Benign prostatic hyperplasia Status: Chronic Plan: Stable -Continue home finasteride (6) FEN/PPX Plan: Fluids: None (see above) Electrolytes: Monitor and replace PRN -Hypokalemia: Start 20 meq potassium BID, check again this evening since also received Lasix in ER and will continue to get more Nutrition: Diet heart healthy with restrictions noted above DVT: Lovenox 40 mg SQ daily GI: Continue home pantoprazole Code status: FULL CODE Dispo: Admit to inpatient. Anticipate 2 day LOS with discharge home. Physician Certification 2 Midnight Certification Type: Admission for Inpatient Services Order for Inpatient Services The services are ordered in accordance with Medicare regulations or non- Medicare payer requirements, as applicable. In the case of services not specified as inpatient-only, they are appropriately provided as inpatient services in accordance with the 2-midnight benchmark. Estimated LOS (days): 2 days is the estimated time the patient will need to remain in the hospital, assuming treatment plan goals are met and no additional complications. Post-Hospital Plan: Home Problem Qualifiers (1) Acute exacerbation of CHF (congestive heart failure): Qualified Codes: I50.23 - Acute on chronic systolic (congestive) heart failure (2) CAD (coronary artery disease): Qualified Codes: I25.10 - Atherosclerotic heart disease of jamul coronary artery without angina pectoris (3) COPD (chronic obstructive pulmonary disease): Qualified Codes: J44.9 - Chronic obstructive pulmonary disease, unspecified (4) Benign prostatic hyperplasia: Qualified Codes: N40.1 - Benign prostatic hyperplasia with lower urinary tract symptoms; R35.0 - Frequency of micturition Geovanni Chanel MD R2 August 13, 2017 12:47
[2017-08-13] MEDS ORDERED: SODIUM CHLORIDE 0.9% FLUSH 10 ML FLUSH IV FLUSH PRN (13:00)
[2017-08-13 16:32] LABS: TROPONIN I 0.21 NG/ML (0.02-0.05)
[2017-08-13] MEDS: ENOXAPARIN SODIUM 40 MG/0.4 ML SYRINGE SQ SCH (16:58)
[2017-08-13] MEDS: FUROSEMIDE 40 MG/4 ML VIAL IVP SCH (16:59)
[2017-08-13] MEDS ORDERED: POTASSIUM CHLORIDE 25 MEQ EFFERVESCENT TAB PO ONE (17:15)
[2017-08-13] MEDS: CARVEDILOL 12.5 MG TAB PO SCH (20:24)
[2017-08-13] MEDS: POTASSIUM CHLORIDE 20 MEQ CONTROLLED RELEASE TAB PO SCH (20:25)
[2017-08-13] MEDS: SODIUM CHLORIDE 0.9% FLUSH 10 ML FLUSH IV FLUSH SCH (20:25)
--- NOTE | 2017-08-13 20:42 | EKG ---
Date Performed: 08/13/2017 Time Performed: 09:57:21 PTAGE: 76 years EKG: Sinus rhythm INDETERMINATE AXIS INTRAVENTRICULAR CONDUCTION DELAY ANTEROLATERAL MYOCARDIAL INFARCTION ABNORMAL EC G PREVIOUS TRACING : 04/23/2017 19.35 Since the previous tracing, no significant change noted DOCTOR: Kj Pro Interpretating Date/Time 08/13/2017 20:40:21
--- NOTE | 2017-08-13 20:54 | EKG ---
Date Performed: 08/13/2017 Time Performed: 17:24:33 PTAGE: 76 years EKG: Sinus rhythm WITH OCCASIONAL VENTRICULAR PREMATURE COMPLEXES RIGHT BUNDLE BRANCH BLOCK RIGHT AXIS DEVIATION LATER AL MYOCARDIAL INFARCTION , OF INDETERMINATE AGE ST DEPRESSION, CONSIDER ANTERIOR AND LATERAL ISCHEMIA ABNORMAL ECG PREVIOUS TRACING : 08/13/2017 09.57 No significant change from previous tracing noted. DOCTOR: Gerry Andrade Interpretating Date/Time 08/13/2017 20:53:53
[2017-08-13] MEDS: BUDESONIDE-FORMOTEROL 160/4.5 MCG INHALER INH SCH (22:09)
--- NOTE | 2017-08-13 22:33 | EKG ---
Date Performed: 08/13/2017 Time Performed: 22:10:54 PTAGE: 76 years EKG: Sinus rhythm RIGHT AXIS DEVIATION ST/T ABNORMALITY, CONSIDER ANTEROLATERAL ISCHEMIA RIGHT BUNDLE BRANCH BLOCK ABN ORMAL ECG PREVIOUS TRACING : 08/13/2017 17.24 No significant change from previous tracing noted. DOCTOR: Gerry Andrade Interpretating Date/Time 08/13/2017 22:32:14
[2017-08-13 23:03] LABS: BICARBONATE 29.5 MEQ/L (21.0-32.0); CALCIUM 8.5 MG/DL (8.5-10.1); CREATININE 1.13 MG/DL (0.60-1.30)
[2017-08-13 23:06] LABS: TROPONIN I 0.2 NG/ML (0.02-0.05)
[2017-08-14] VITALS (12 sets, daily range): BP systolic 99–126; BP diastolic 57–80; PULSE 68–87; RESP 16–19; TEMP 97.4–98.1; O2SAT 93–96
--- NOTE | 2017-08-14 08:54 | MB ---
cc: Gerry Andrade MD DATE: 08/14/2017 REASON FOR CONSULTATION: Congestive heart failure, abnormal troponin levels. HISTORY OF PRESENT ILLNESS: The patient is a 76-year-old white male with a history of coronary artery disease, severe dilated cardiomyopathy with ejection fraction of 20%, sleep apnea, moderate to severe mitral regurgitation, who presented to the hospital with increasing shortness of breath. The patient's most recent echo this month showed ejection fraction of 20%, which was reduced compared to just 4 months ago, at which time his ejection fraction was 30%. On CT of the chest this month, he demonstrated moderate bilateral pleural effusions and underwent right thoracentesis by Dr. Tanvir Encarnacion last week. Initially, he improved, but 2 days after the thoracentesis he began to experience progressively worsening shortness of breath. In addition, he has had pedal edema, although this has since resolved. He denies paroxysmal nocturnal dyspnea, orthopnea, dizziness, syncope, near syncope, palpitations. About 3 days ago he had episodic sharp left-sided chest pain which seemed to increase with inspiration. This chest discomfort has resolved. He cannot recall any other episodes of chest discomfort recently. PAST MEDICAL HISTORY: 1. Sleep apnea. 2. Coronary artery disease, status post 3-vessel bypass surgery in [place], [place] 1998. He is also status post stent of the mid portion of the vein graft to the diagonal with a 3.0 mm Promus and stent of the tuscarora LAD with a 2.25 mm Promus stent 03/31/2011. His last heart catheterization was 09/25/2012, showing minimal left main disease, totally occluded proximal LAD, probably totally occluded obtuse marginal, totally occluded mid right coronary with good left to right collaterals, totally occluded vein graft to the diagonal, patent left internal mammary artery to the LAD with patent tuscarora LAD stents, totally occluded vein graft to the obtuse marginal. 3. Hyperlipidemia. 4. Hypertension. 5. Severe ischemic cardiomyopathy. In 09/2012, his ejection fraction was 35%, although it had improved to 55-60% in 07/2014. His most recent echo was 08/01/2017 showing ejection fraction of 20%. 6. Moderate to severe mitral regurgitation demonstrated by echo 08/01/2017. 7. Non-Hodgkin's lymphoma. 8. Paroxysmal ventricular tachycardia with 3 salvos of wide complex tachycardia demonstrated on hospital monitoring, 08/2012 when he was hypokalemic during a congestive heart failure admission. MEDICATIONS: Cardiac medications at home: Aspirin 81 mg daily, carvedilol 25 mg b.i.d., Diovan 80 mg daily, fenofibrate 54 mg daily, torsemide 10 mg b.i.d. ALLERGIES: NO KNOWN DRUG ALLERGIES. FAMILY HISTORY: Noncontributory. SOCIAL HISTORY: The patient is a former smoker. There is no history of alcohol abuse. REVIEW OF SYSTEMS: As in the history of present illness, otherwise negative or noncontributory. He also denies headache, abdominal pain, melena, dyspepsia, fevers, cough. PHYSICAL EXAMINATION: VITAL SIGNS: Blood pressure 120/57 with a pulse of 73, respirations 19. GENERAL: He is a well-developed, well-nourished white male, in no acute distress. HEENT/NECK: Jugular venous pressure is normal. Carotid pulses are 2+ bilaterally and without bruits. CHEST: Reveals bibasilar crackles, right greater than left. HEART: He has a regular rhythm and rate without S3, S4 or murmur. ABDOMEN: On abdominal examination, he has a soft, nontender abdomen. Bowel sounds are present. There is no definite hepatosplenomegaly. EXTREMITIES: Reveals no clubbing, cyanosis or edema. LABORATORY DATA: EKG shows sinus rhythm, right bundle branch block, possible inferior infarct, age undetermined, anterolateral ST and T-wave abnormality, consider ischemia. Laboratory data includes normal CBC. Potassium 3.5, BUN 15, creatinine 1.13, troponin 0.21. Chest x-ray shows increasing bilateral lower lung infiltrates. IMPRESSION: Recurrent congestive heart failure, atypical chest pain, slightly abnormal troponin levels in this 76-year-old white male with a history of coronary artery disease, severe dilated cardiomyopathy with ejection fraction of 20%, sleep apnea, moderate to severe mitral regurgitation. He has symptomatically improved since coming into the hospital with good intravenous Lasix diuresis. Overall, his chest pains 3 days ago are atypical for myocardial ischemia, somewhat pleuritic in nature, now resolved. His troponin levels are only slightly abnormal and possibly due to congestive heart failure. Of note, the patient was scheduled for an outpatient AICD implant next week. His ejection fraction has been less than 35% for the past 4 months on maximal medical therapy. RECOMMENDATIONS: 1. Agree with starting Entresto and stopping his Diovan. 2. Continue intravenous Lasix diuresis, as well as his beta richi. 3. We will check a nuclear stress test today. Unless major ischemia is seen in the LAD or left circumflex territories, would recommend medical therapy. 4. Possible AICD implant tomorrow. Gerry Andrade MD GHMercedes/LILY , 08:22 AM , 08:53 AM MTDD
[2017-08-14] MEDS: POTASSIUM CHLORIDE 20 MEQ CONTROLLED RELEASE TAB PO SCH ×2 (09:22→21:30)
[2017-08-14] MEDS: FINASTERIDE 5 MG TAB PO SCH (09:22)
[2017-08-14] MEDS: FENOFIBRATE 48 MG TAB PO SCH (09:22)
[2017-08-14] MEDS: ASPIRIN 81 MG CHEW TAB CHEW SCH (09:22)
[2017-08-14] MEDS: LORATADINE 10 MG TAB PO SCH (09:22)
[2017-08-14] MEDS: MULTIVITAMINS/MINERALS THERAPEUTIC TAB PO SCH (09:22)
[2017-08-14] MEDS: PANTOPRAZOLE SOD 40 MG DELAYED RELEASE TAB PO SCH (09:22)
[2017-08-14] MEDS: FUROSEMIDE 40 MG/4 ML VIAL IVP SCH ×2 (09:22→16:55)
[2017-08-14] MEDS: BUDESONIDE-FORMOTEROL 160/4.5 MCG INHALER INH SCH ×2 (09:23→21:30)
[2017-08-14] MEDS: SODIUM CHLORIDE 0.9% FLUSH 10 ML FLUSH IV FLUSH SCH ×2 (09:23→21:31)
[2017-08-14] MEDS: CARVEDILOL 12.5 MG TAB PO SCH ×2 (09:23→21:29)
--- NOTE | 2017-08-14 10:19 | HHI.HP ---
[facility] Service Family Medicine Primary Care Physician Stevie Hartman MD Admission Diagnosis CHF exacerbation, Hypoxic respiratory failure. Diagnoses: (1) Acute exacerbation of CHF (congestive heart failure) (2) Elevated troponin (3) CAD (coronary artery disease) (4) COPD (chronic obstructive pulmonary disease) (5) Benign prostatic hyperplasia (6) FEN/PPX International Travel<30 Days: No Contact w/Intl Traveler<30days: No Known Affected Area: No History of Present Illness Mr Siddiqui is a 76 yo male with h/o COPD, CHF with recent Echo in office of semiconductor equipment technician Dr. Andrade showing EF of 20% per patient report presents with increased SOB associated with orthopnea and lower extremity edema since Monday. He recently had a pleuracentesis by Dr. Encarnacion (child care lead teacher) for a large pleural effusion (done 08/09). This improved his breathing significantly but then it worsened on Monday and got steadily worse since then. Of note the pleural fluid was analyzed and was negative for malignant cells though this is not a definitive test. There is no associated chest pain, though he does note some tightness of the chest and abdomen worse on inspiration. This am he feels much better after diuresis. He reports that gis legs which had significant edema are now essentially back to normal. He states he can tell wghen he is accumulating fluid as he cannot sleep flat due to his breathing. He has not been weighting himself at home nor perhaps watching his fluid intake. He will have a nuclear stress test today and is scheduled for a defibrillator to be placed tomorrow. Review of Systems Other Constitutional: DENIES: Fatigue, Fever, Chills Endocrine: DENIES: Polydipsia, Polyuria Eyes: DENIES: Vision loss Ears, nose, mouth, throat: DENIES: Nasal discharge, Throat pain, Sinus Pain Respiratory: COMPLAINS OF: Cough, Shortness of breath, DENIES: Wheezing, Sputum production Cardiovascular: COMPLAINS OF: Dyspnea on Exertion, Lower Extremity Edema, Orthopnea, DENIES: Chest pain, Palpitations Gastrointestinal: DENIES: Abdominal pain, Black stools, Bloody stools, Constipation, Diarrhea Genitourinary: COMPLAINS OF: Urinary frequency, DENIES: Dysuria Musculoskeletal: DENIES: Muscle aches Integumentary: DENIES: Rash Hematologic/lymphatic: DENIES: Bruising Immunologic/allergic: DENIES: Urticaria Neurologic: DENIES: Headache, Localized weakness Psychiatric: DENIES: Anxiety, Depression Past Family Social History Past Medical History CHF COPD Pre-diabetes (A1C 6.3 in 2016) Past Surgical History CABG x3 - 1998 Coronary stenting - 2013 Allergies: Coded Allergies: No Known Allergies (Verified Adverse Reaction, Unknown, 08/13/17) Family History Brother - Heart Disease Social History Tob - smoked 1 PPD for ~20 years. Quit > 5 years ago Alc - none Drugs - none Former ([employer]) Physical Exam Vital Signs Vital Signs Date Time Temp Pulse Resp B/P (MAP) Pulse Ox O2 Delivery O2 Flow Rate FiO2 08/14/17 08:07 98.1 75 16 126/80 (95) 95 08/14/17 04:00 Nasal Cannula 2.50 08/14/17 04:00 97.4 73 19 120/57 (78) 95 08/14/17 03:53 69 08/14/17 00:00 97.6 87 18 114/63 (80) 95 08/13/17 23:55 71 08/13/17 20:00 97.5 86 18 131/63 (85) 96 08/13/17 19:49 92 08/13/17 19:43 Nasal Cannula 3.00 08/13/17 16:30 85 08/13/17 15:00 97.6 85 20 143/85 (104) 94 08/13/17 10:19 20 97 Nasal Cannula 3.00 08/13/17 10:19 97 Nasal Cannula 3.00 Physical Exam GENERAL: WDWN adult white male with normal body habitus sitting up in bed. NC in place. SKIN: No rashes, ecchymoses or lesions. Cool and dry. HEAD: NC/AT EYES: PERRL. EOMI. No conjunctival injection or drainage. ENT: MMM, OP without erythema, tonsillar swelling, or exudate. NECK: Supple, no lymphadenopathy. CARDIOVASCULAR: NRRR. Normal S1/S2. No MRG RESPIRATORY: Increased work of breathing, able to speak in short sentences on admission but improved now. Inspiratory crackles bilaterally up to lower lung [place]. GASTROINTESTINAL: Abdomen soft, non-distended, non-tender. No hepato- splenomegaly or palpable masses. MUSCULOSKELETAL: 1+ edema of BLE about 1/[address] [place] on admission but better now with maybe trace edema NEUROLOGICAL: Awake and alert. Cranial nerves II through XII grossly intact. Moves all extremities without difficulty. Normal speech. Laboratory Laboratory Tests Test 08/13/17 15:52 08/13/17 22:27 08/14/17 05:20 Potassium Level 3.2 3.8 3.5 Troponin I 0.21 0.20 Blood Urea Nitrogen 15 Creatinine 1.13 Random Glucose 135 Calcium Level 8.5 Sodium Level 145 Chloride Level 107 Carbon Dioxide Level 29.5 Anion Gap 9 Estimat Glomerular Filtration Rate 63 B-Type Natriuretic Peptide 828 Result Diagram: 08/13/17 0948 08/14/17 0520 Imaging Last Impressions Chest X-Ray 08/13/17 0000 Signed Impressions: Service Date/Time: Sunday, August 13, 2017 09:50 - CONCLUSION: Increasing bilateral lower lung infiltrates. Cristian Mullins MD EKG - Sinus rhythm, normal rate, ST depressions and T-wave inversions in V1-V6, improved from previous EKG in March Caprini VTE Risk Assessment Caprini VTE Risk Assessment: Mod/High Risk (score >= 2) Caprini Risk Assessment Model Point Value = 1 Point Value = 2 Point Value = 3 Point Value = 5 Age 41-60 Minor surgery BMI > 25 kg/m2 Swollen legs Varicose veins or History of unexplained or recurrent spontaneous Oral contraceptives or hormone replacement Sepsis (< 1 month) Serious lung disease, including pneumonia (< 1 month) Abnormal pulmonary function Acute myocardial infarction Congestive heart failure (< 1 month) History of inflammatory bowel disease Medical patient at bed rest Age 61-74 Arthroscopic surgery Major open surgery (> 45 min) Laparoscopic surgery (> 45 min) Malignancy Confined to bed (> 72 hours) Immobilizing plaster cast Central venous access Age >= 75 History of VTE Family history of VTE Factor V Leiden Prothrombin [id number] Lupus anticoagulant Anticardiolipin antibodies Elevated serum homocysteine Heparin-induced thrombocytopenia Other congenital or acquired thrombophilia Stroke (< 1 month) Elective arthroplasty Hip, pelvis, or leg fracture Acute spinal cord injury (< 1 month) Prophylaxis Regimen Total Risk Factor Score Risk Level Prophylaxis Regimen 0-1 Low Early ambulation 2 Moderate Order ONE of the following: *Sequential Compression Device (SCD) *Heparin 5000 units SQ BID 3-4 Higher Order ONE of the following medications: *Heparin 5000 units SQ TID *Enoxaparin/Lovenox 40 mg SQ daily (WT < 150 kg, CrCl > 30 mL/min) *Enoxaparin/Lovenox 30 mg SQ daily (WT < 150 kg, CrCl > 10-29 mL/min) *Enoxaparin/Lovenox 30 mg SQ BID (WT < 150 kg, CrCl > 30 mL/min) AND/OR *Sequential Compression Device (SCD) 5 or more Highest Order ONE of the following medications: *Heparin 5000 units SQ TID (Preferred with Epidurals) *Enoxaparin/Lovenox 40 mg SQ daily (WT < 150 kg, CrCl > 30 mL/min) *Enoxaparin/Lovenox 30 mg SQ daily (WT < 150 kg, CrCl > 10-29 mL/min) *Enoxaparin/Lovenox 30 mg SQ BID (WT < 150 kg, CrCl > 30 mL/min) AND *Sequential Compression Device (SCD) Assessment and Plan Assessment and Plan 76 yo with severe CHF presenting with: Problem List: (1) Acute exacerbation of CHF (congestive heart failure) ICD Codes: I50.9 - Heart failure, unspecified Status: Acute Plan: Exam and history classic for CHF exacerbation BNP > 1000 CXR with pulmonary edema -Lasix 40 mg IV BID for now, will decrease once he diureses -1.5 L fluid restriction -2 gm sodium restriction -Continue home Coreg -Hold home valsartan; patient's semiconductor equipment technician Dr. Andrade may want to switch to Entresto (had been discussing with patient as outpatient) -Consulted Dr. Andrade to discuss -Strict I&Os -CHF education. will discuss and teach about home weights and fluid management (2) Elevated troponin ICD Codes: R74.8 - Abnormal levels of other serum enzymes Status: Chronic Plan: On record review troponin ranges from 0.12-0.15 Initial troponin 0.18 EKG changes noted above, actually improved from Jose having stress test today (3) CAD (coronary artery disease) ICD Codes: I25.10 - Atherosclerotic heart disease of [place] coronary artery without angina pectoris Status: Chronic Plan: Stable, asymptomatic at present -ASA daily -Will order NTG if patient develops chest pain (4) COPD (chronic obstructive pulmonary disease) ICD Codes: J44.9 - Chronic obstructive pulmonary disease, unspecified Status: Chronic Plan: Stable -Continue home Advair -DuoNebs PRN (5) Benign prostatic hyperplasia Status: Chronic Plan: Stable -Continue home finasteride (6) FEN/PPX Plan: Fluids: None (see above) Electrolytes: Monitor and replace PRN -Hypokalemia: Start 20 meq potassium BID, check again this evening since also received Lasix in ER and will continue to get more Nutrition: Diet heart healthy with restrictions noted above DVT: Lovenox 40 mg SQ daily GI: Continue home pantoprazole Code status: FULL CODE Dispo: Admit to inpatient. Anticipate 2 day LOS with discharge home. Problem Qualifiers (1) Acute exacerbation of CHF (congestive heart failure): Qualified Codes: I50.23 - Acute on chronic systolic (congestive) heart failure (2) CAD (coronary artery disease): Qualified Codes: I25.10 - Atherosclerotic heart disease of [place] coronary artery without angina pectoris (3) COPD (chronic obstructive pulmonary disease): Qualified Codes: J44.9 - Chronic obstructive pulmonary disease, unspecified (4) Benign prostatic hyperplasia: Qualified Codes: N40.1 - Benign prostatic hyperplasia with lower urinary tract symptoms; R35.0 - Frequency of micturition Charity Bojorquez MD August 14, 2017 10:19
[2017-08-14] MEDS ORDERED: REGADENOSON INJ 0.4 MG/5 ML SYR ONE (13:36)
--- NOTE | 2017-08-14 16:53 | RADRPT ---
EXAM DATE/TIME: 08/14/2017 13:29 [place] COMPARISON: No previous studies available for comparison. INDICATIONS : Dyspnea. Abnormal EKG. DOSE: 25.1 mCi Tc99m Myoview at stress. 8.5 mCi Tc99m Myoview at rest. 0.4 mg Lexiscan STRESS SYMPTOMS: Short of breath. EJECTION FRACTION: 23% MEDICAL HISTORY : Myocardial infarction. Chronic obstructive pulmonary disease. Hypercholesterolemia. Hypertension. SURGICAL HISTORY : Appendectomy. ENCOUNTER: Initial ACUITY: 1 day PAIN SCALE: 0/10 LOCATION: chest TECHNIQUE: The patient underwent pharmacologic stress with infusion of prescribed dose. Continuous ECG tracing was monitored during stress. Gated SPECT imaging was performed after stress and conventional SPECT i maging was performed at rest. The examination was performed on a SPECT/CT scanner, both attenuation and non-corrected datasets were reviewed. FINDINGS: DISTRIBUTION: The maximum perfused segment at stress is in the anterior wall. PERFUSION STUDY: There is mildly diminished relative perfusion involving portions of the lateral wall and cardiac apex and moderately severely diminished perfusion involving the inferoapical region. There does appear to be at least mild lateral redistribution GATED STUDY: Moderate left ventricular chamber dilatation and global hypokinesis CONCLUSION: Dilated LV. Severe LV dysfunction. Mild lateral ischemia. RISK CATEGORY: High (>3% Annual Mortality Rate) Gregorio Armstrong MD on August 14, 2017 at 16:47 Board Certified Radiologist. This report was verified electronically.
[2017-08-14] MEDS: ENOXAPARIN SODIUM 40 MG/0.4 ML SYRINGE SQ SCH (16:55)
[2017-08-14] MEDS ORDERED: POVIDONE IODINE 5% (ANTISEPSIS KIT) 4 APPLICATIONS TOPICAL SCH (17:00)
[2017-08-14] MEDS ORDERED: CHLORHEXIDINE GLUCONATE 2 % 1 PACK (2 CLOTHS) TOPICAL SCH (17:00)
[2017-08-14] MEDS ORDERED: MUPIROCIN 2% OINT 1 APPLIC/GM SYR EACH NARE SCH (17:00)
[2017-08-14] MEDS: SACUBITRIL/VALSARTAN 24 MG-26 MG TAB PO SCH (21:29)
[2017-08-15] VITALS (12 sets, daily range): BP systolic 104–117; BP diastolic 56–79; PULSE 66–77; RESP 16–20; TEMP 97.1–97.9; O2SAT 91–94
[2017-08-15 07:47] LABS: AUTOMATED NEUTROPHIL # 5.1 TH/MM3 (1.8-7.7); BASOPHIL % 0.6 % (0.0-2.0); EOSINOPHIL # 0.2 TH/MM3 (0-0.4); EOSINOPHIL % 2.9 % (0.0-4.0); HEMATOCRIT 39.9 % (39.0-51.0); HEMOGLOBIN 13.3 GM/DL (13.0-17.0); LYMPH % 21.6 % (9.0-44.0); LYMPHOCYTE # 1.6 TH/MM3 (1.0-4.8); MEAN CELL VOLUME 88.9 FL (80.0-100.0); MEAN CORPUSCULAR HEMOGLOBIN 29.7 PG (27.0-34.0); MEAN CORPUSCULAR HGB CONC 33.3 % (32.0-36.0); MEAN PLATELET VOLUME 9.7 FL (7.0-11.0); MONO % 7.3 % (0.0-8.0); MONOCYTE # 0.6 TH/MM3 (0-0.9); NEUT % 67.6 % (16.0-70.0); PLATELET COUNT 128 TH/MM3 (150-450); RED BLOOD COUNT 4.49 MIL/MM3 (4.50-5.90); RED CELL DISTRIBUTION WIDTH 16.1 % (11.6-17.2); WHITE BLOOD COUNT 7.6 TH/MM3 (4.0-11.0)
[2017-08-15] MEDS ORDERED: SODIUM CHLOR 0.9% 1000 ML INJ 1,000 ML IV SCH (08:00)
[2017-08-15 08:09] LABS: BICARBONATE 26.4 MEQ/L (21.0-32.0); CALCIUM 8.9 MG/DL (8.5-10.1); CREATININE 1.04 MG/DL (0.60-1.30)
[2017-08-15] MEDS: FINASTERIDE 5 MG TAB PO SCH (08:24)
[2017-08-15] MEDS: CARVEDILOL 12.5 MG TAB PO SCH ×2 (08:24→21:38)
[2017-08-15] MEDS: SACUBITRIL/VALSARTAN 24 MG-26 MG TAB PO SCH ×2 (08:24→21:39)
[2017-08-15] MEDS: ASPIRIN 81 MG CHEW TAB CHEW SCH (08:24)
[2017-08-15] MEDS: MULTIVITAMINS/MINERALS THERAPEUTIC TAB PO SCH (08:24)
[2017-08-15] MEDS: POTASSIUM CHLORIDE 20 MEQ CONTROLLED RELEASE TAB PO SCH ×2 (08:24→21:39)
[2017-08-15] MEDS: LORATADINE 10 MG TAB PO SCH (08:24)
[2017-08-15] MEDS: PANTOPRAZOLE SOD 40 MG DELAYED RELEASE TAB PO SCH (08:24)
[2017-08-15] MEDS: FUROSEMIDE 40 MG/4 ML VIAL IVP SCH ×2 (08:24→18:20)
[2017-08-15] MEDS: FENOFIBRATE 48 MG TAB PO SCH (08:24)
[2017-08-15] MEDS: SODIUM CHLORIDE 0.9% FLUSH 10 ML FLUSH IV FLUSH SCH ×2 (08:25→21:39)
[2017-08-15] MEDS: BUDESONIDE-FORMOTEROL 160/4.5 MCG INHALER INH SCH ×2 (08:25→22:49)
--- NOTE | 2017-08-15 08:28 | HHI.FPPN ---
Subjective Remarks Mr. Siddiqui was afebrile with stable vital signs overnight; normotensive with O2 sat 93-94%. Per EMR, patient lost 0.5 kg overnight. 1050 ml urine output. Mr. Siddiqui did well overnight; he is accompanied by his daughter this morning. No chest pain, shortness of breath, abnormal urination, or abnormal bowel movements. (Ismael Goldman MD R3) Objective Vitals Vital Signs Date Time Temp Pulse Resp B/P (MAP) Pulse Ox O2 Delivery O2 Flow Rate FiO2 08/15/17 04:00 97.8 75 18 114/69 (84) 94 08/15/17 03:52 66 08/15/17 00:03 71 08/15/17 00:00 97.8 75 19 113/69 (84) 94 08/14/17 20:15 Room Air 08/14/17 20:10 77 08/14/17 20:00 97.7 73 17 99/58 (72) 93 08/14/17 18:15 Nasal Cannula 1.00 08/14/17 17:41 95 Nasal Cannula 2.00 08/14/17 16:07 97.6 80 18 124/64 (84) 95 08/14/17 16:00 81 08/14/17 13:24 Nasal Cannula 2.00 08/14/17 12:07 97.4 68 17 111/68 (82) 96 08/14/17 12:00 68 08/14/17 12:00 Nasal Cannula 1.00 08/14/17 10:19 Nasal Cannula 2.00 I/O 08/14/17 08/14/17 08/14/17 08/15/17 08/15/17 08/15/17 07:00 15:00 23:00 07:00 15:00 23:00 Intake Total 350 ml 0 ml 0 ml Output Total 800 ml 800 ml 250 ml Balance -450 ml -800 ml -250 ml Intake Oral 350 ml 0 ml 0 ml Output Urine Total 800 ml 800 ml 250 ml # Voids 3 # Bowel Movements 0 0 (Ismael Goldman MD R3) Result Diagram: 08/15/17 0610 08/15/17 0610 Imaging Last Impressions Myocardial Perfusion Scan Nuc Med 08/14/17 0000 Signed Impressions: Service Date/Time: Monday, August 14, 2017 13:29 - CONCLUSION: Dilated LV. Severe LV dysfunction. Mild lateral ischemia. RISK CATEGORY: High (>3%% Annual Mortality Rate) Gregorio Armstrong MD Chest X-Ray 08/13/17 0000 Signed Impressions: Service Date/Time: Sunday, August 13, 2017 09:50 - CONCLUSION: Increasing bilateral lower lung infiltrates. Cristian Mullins MD Objective Remarks GENERAL: No acute distress; sitting in bed SKIN: No rashes, ecchymoses or lesions. Cool and dry. EYES: EOM grossly I. No conjunctival injection or drainage. ENT: MMM CARDIOVASCULAR: Regular rate and rhythm; no murmurs. Normal peripheral perfusion. RESPIRATORY: On room air. Improved from prior exam; decreased work of breathing. Normal rate. Previously audible inspiratory crackles not as audible. Decreased breath sounds GASTROINTESTINAL: Abdomen soft, non-distended, non-tender. No hepato- splenomegaly or palpable masses. MUSCULOSKELETAL: Minimal edema; improved from prior exam. No calf asymmetry. Grossly normal motor function and range of motion NEUROLOGICAL: Awake and alert. Cranial nerves grossly intact. Grossly normal peripheral motor/sensory function. Normal speech. (Ismael Goldman MD R3) A/P Assessment and Plan 76 yo with severe CHF presenting with: (Ismael Goldman MD R3) Attending Attestation Patient seen and examined. Case reviewed and discussed with the resident team. Agree with plan of care as discussed with me and documented in the resident note. doing well. have been discussing s/s of CHF and when to ask for help as an outpt (Charity Bojorquez MD) Problem List: (1) Acute exacerbation of CHF (congestive heart failure) ICD Codes: I50.9 - Heart failure, unspecified Status: Acute Plan: Impression: Exam and history classic for CHF exacerbation. BNP > 1000 on admission-> 828 (08/15). CXR 08/13- increasing bilateral lower lung infiltrates Nuclear stress test 08/14- Dilated. Severe LV dysfunction. Mild lateral ischemia. High risk -1.5 L fluid restriction -2 gm sodium restriction -Strict I&Os -CHF education -Cardiology consulted -Continue home Coreg -Continue Entresto 24mg/26mg BID -Plan for AICD placement -Lasix 40 mg IV BID for now, will decrease once he diureses (2) Elevated troponin ICD Codes: R74.8 - Abnormal levels of other serum enzymes Status: Chronic Plan: Impression: On record review troponin ranges from 0.12-0.15. Initial troponin 0.18. Initial EKG on admission without interval changes -Troponins trended- no significant increase from ~0.2 -EKG's trended- no significant changes -Nuclear stress test (08/14)- mild lateral ischemia; severe LV dysfunction (3) CAD (coronary artery disease) ICD Codes: I25.10 - Atherosclerotic heart disease of [place] coronary artery without angina pectoris Status: Chronic Plan: Stable, asymptomatic at present -ASA daily -Will order NTG if patient develops chest pain (4) COPD (chronic obstructive pulmonary disease) ICD Codes: J44.9 - Chronic obstructive pulmonary disease, unspecified Status: Chronic Plan: Stable -Continue home Advair -DuoNebs PRN (5) Benign prostatic hyperplasia Status: Chronic Plan: Stable -Continue home finasteride (6) FEN/PPX Plan: Fluids: None (see above) Electrolytes: Monitor and replace PRN -Hypokalemia: Start 20 meq potassium BID; will monitor Nutrition: Diet heart healthy with restrictions noted above DVT: Lovenox 40 mg SQ daily GI: Continue home pantoprazole (Ismael Goldman MD R3) Problem Qualifiers (1) Acute exacerbation of CHF (congestive heart failure): Qualified Codes: I50.23 - Acute on chronic systolic (congestive) heart failure (2) CAD (coronary artery disease): Qualified Codes: I25.10 - Atherosclerotic heart disease of [place] coronary artery without angina pectoris (3) COPD (chronic obstructive pulmonary disease): Qualified Codes: J44.9 - Chronic obstructive pulmonary disease, unspecified (4) Benign prostatic hyperplasia: Qualified Codes: N40.1 - Benign prostatic hyperplasia with lower urinary tract symptoms; R35.0 - Frequency of micturition Ismael Goldman MD R3 August 15, 2017 08:28 Charity Bojorquez MD August 17, 2017 11:50
[2017-08-15] MEDS ORDERED: PROPOFOL 200 MG/20 ML AMP IV ONE (12:00)
[2017-08-15] MEDS ORDERED: PHENYLEPH/NS 1000 MCG/10 ML SYR IV ONE (12:00)
[2017-08-15] MEDS ORDERED: PHENYLEPHRINE HCL 10 MG/ML VIAL IV ONE (12:00)
[2017-08-15] MEDS ORDERED: ePHEDrine/NS 25 MG/5 ML SYRINGE IV ONE (12:00)
[2017-08-15] MEDS ORDERED: LIDOCAINE HCL 1% PF 5 ML SYRINGE OTHER ONE (12:00)
--- NOTE | 2017-08-15 13:29 | PD.CARD.PN ---
Subjective Subjective Remarks No CP, dyspnea, dizziness, palpitations, PND. Objective Medications Item Value Date Time Sacubitril/ 1 tab 08/14/17 2100 Valsartan BID/PO 08/15/17 0824 (Entresto 24-26 Mg) Aspirin 81 mg 08/14/17 0900 (Aspirin Chew) DAILY/CHEW 08/15/17 0824 Fenofibrate 48 mg 08/14/17 0900 (Tricor) DAILY/PO 08/15/17 0824 Potassium Chloride 20 meq 08/13/17 2100 (KCl) BID/PO 08/15/17 0824 Carvedilol 25 mg 08/13/17 2100 (Coreg) BID/PO 08/15/17 0824 Furosemide 40 mg 08/13/17 1800 (Lasix Inj) BID@/IVP 08/15/17 0824 Enoxaparin Sodium 40 mg 08/13/17 1400 (Lovenox Inj) Q24H/SQ 08/14/17 1655 Current Medications Medications (Trade) Dose Ordered Sig/Matt Route Start Time Stop Time Status Last Admin (NS Flush) 2 ml BID IV FLUSH 08/13/17 21:00 08/15/17 08:25 (NS Flush) 2 ml UNSCH PRN IV FLUSH 08/13/17 13:00 (Lasix Inj) 40 mg BID@ IVP 08/13/17 18:00 08/15/17 08:24 (KCl) 20 meq BID PO 08/13/17 21:00 08/15/17 08:24 (Lovenox Inj) 40 mg Q24H SQ 08/13/17 14:00 08/14/17 16:55 (Aspirin Chew) 81 mg DAILY CHEW 08/14/17 09:00 08/15/17 08:24 (Coreg) 25 mg BID PO 08/13/17 21:00 08/15/17 08:24 (Proscar) 5 mg DAILY PO 08/14/17 09:00 08/15/17 08:24 (Theragran M Tab) 1 tab DAILY PO 08/14/17 09:00 08/15/17 08:24 (Protonix) 40 mg DAILY PO 08/14/17 09:00 08/15/17 08:24 (Tricor) 48 mg DAILY PO 08/14/17 09:00 08/15/17 08:24 (Claritin) 10 mg DAILY PO 08/14/17 09:00 08/15/17 08:24 (Symbicort 160-4.5 Mcg Inh) 2 puff BID INH 08/13/17 21:00 08/15/17 08:25 (Entresto 24-26 Mg) 1 tab BID PO 08/14/17 21:00 08/15/17 08:24 Sodium Chloride 1,000 ml @ 75 mls/hr [id number] IV 08/15/17 08:00 08/15/17 08:23 Cefazolin Sodium 1000 mg/Sodium Chloride 250 ml @ 0 mls/hr DRUG ABUSE RESISTANCE EDUCATION OFFICER IV 08/15/17 13:30 Vancomycin HCl 1000 mg/Sodium Chloride 250 ml @ 0 mls/hr DRUG ABUSE RESISTANCE EDUCATION OFFICER IV 08/15/17 13:30 (Betadine 5% Antisepsis Kit) 1 applic DRUG ABUSE RESISTANCE EDUCATION OFFICER TOPICAL 08/14/17 17:00 (Bactroban Nasal 2% Oint) 1 applic DRUG ABUSE RESISTANCE EDUCATION OFFICER EACH NARE 08/14/17 17:00 (Chlorhexidine 2% Cloth) 1 pack DRUG ABUSE RESISTANCE EDUCATION OFFICER TOPICAL 08/14/17 17:00 Vital Signs / I&O Vital Signs Date Time Temp Pulse Resp B/P (MAP) Pulse Ox O2 Delivery O2 Flow Rate FiO2 08/15/17 11:07 Nasal Cannula 2.00 08/15/17 10:16 Room Air 08/15/17 08:00 97.1 72 20 117/79 (92) 92 08/15/17 08:00 74 08/15/17 04:00 97.8 75 18 114/69 (84) 94 08/15/17 03:52 66 08/15/17 00:03 71 08/15/17 00:00 97.8 75 19 113/69 (84) 94 08/14/17 20:15 Room Air 08/14/17 20:10 77 08/14/17 20:00 97.7 73 17 99/58 (72) 93 08/14/17 18:15 Nasal Cannula 1.00 08/14/17 17:41 95 Nasal Cannula 2.00 08/14/17 16:07 97.6 80 18 124/64 (84) 95 08/14/17 16:00 81 I/O 08/14/17 08/14/17 08/14/17 08/15/17 5/22/18 5/22/18 07:00 15:00 23:00 07:00 15:00 23:00 Intake Total 350 ml 0 ml 0 ml Output Total 800 ml 800 ml 250 ml Balance -450 ml -800 ml -250 ml Intake Oral 350 ml 0 ml 0 ml Output Urine Total 800 ml 800 ml 250 ml # Voids 3 # Bowel Movements 0 0 Physical Exam GENERAL: Well developed, well nourished. No acute distress. HEENT: Jugular venous pressure is normal. CHEST: Lungs clear to auscultation bilaterally. Unlabored respiratory effort. CARDIAC: Regular rate and rhythm without S3, S4, or murmur. ABDOMEN: Soft, nontender, no hepatosplenomegaly. Bowel sounds present. EXTREMITIES: No clubbing, cyanosis, or edema. Laboratory Laboratory Tests Test 08/15/17 06:10 White Blood Count 7.6 TH/MM3 Red Blood Count 4.49 MIL/MM3 Hemoglobin 13.3 GM/DL Hematocrit 39.9 % Mean Corpuscular Volume 88.9 FL Mean Corpuscular Hemoglobin 29.7 PG Mean Corpuscular Hemoglobin Concent 33.3 % Red Cell Distribution Width 16.1 % Platelet Count 128 TH/MM3 Mean Platelet Volume 9.7 FL Neutrophils (%) (Auto) 67.6 % Lymphocytes (%) (Auto) 21.6 % Monocytes (%) (Auto) 7.3 % Eosinophils (%) (Auto) 2.9 % Basophils (%) (Auto) 0.6 % Neutrophils # (Auto) 5.1 TH/MM3 Lymphocytes # (Auto) 1.6 TH/MM3 Monocytes # (Auto) 0.6 TH/MM3 Eosinophils # (Auto) 0.2 TH/MM3 Basophils # (Auto) 0.0 TH/MM3 CBC Comment DIFF FINAL Differential Comment Blood Urea Nitrogen 17 MG/DL Creatinine 1.04 MG/DL Random Glucose 109 MG/DL Calcium Level 8.9 MG/DL Sodium Level 145 MEQ/L Potassium Level 3.7 MEQ/L Chloride Level 109 MEQ/L Carbon Dioxide Level 26.4 MEQ/L Anion Gap 10 MEQ/L Estimat Glomerular Filtration Rate 69 ML/MIN Assessment and Plan Problem List: (1) CHF (congestive heart failure) ICD Codes: I50.9 - Heart failure, unspecified Status: Acute Plan: Improved since admission with excellent diuresis. Recommend continue beta richi, Entresto. For ICD implant today. Recent echo shows EF 20%. (2) Ischemic cardiomyopathy ICD Codes: I25.5 - Ischemic cardiomyopathy Status: Chronic Plan: As noted, EF < 35% for >3 months on maximal medical therapy. For ICD implant today. (3) CAD (coronary artery disease) ICD Codes: I25.10 - Atherosclerotic heart disease of [place] coronary artery without angina pectoris Status: Chronic Plan: Stable. No definite angina symptoms. No further atypical CP's. Overall small area of lateral ischemia noted on nuclear stress testing, likely corresponding to know occluded vein graft to obtuse marginal. REC medical therapy of his CAD Code Status full code Discussed Condition With patient Problem Qualifiers (1) CHF (congestive heart failure): Qualified Codes: I50.23 - Acute on chronic systolic (congestive) heart failure (2) CAD (coronary artery disease): Qualified Codes: I25.10 - Atherosclerotic heart disease of [place] coronary artery without angina pectoris Gerry Andrade MD August 15, 2017 13:29
[2017-08-15] MEDS ORDERED: VANCOMYCIN INJ 1,000 MG in SODIUM CHLOR 0.9% 250 ML INJ 250 ML IV SCH (13:30)
[2017-08-15] MEDS ORDERED: ceFAZolin INJ 1,000 MG in SODIUM CHLORIDE 0.9% INJ 250 ML IV SCH (13:30)
[2017-08-15] MEDS ORDERED: LIDOCAINE HCL 2% 20 ML VIAL ONE (13:51)
[2017-08-15] MEDS ORDERED: SODIUM CHLOR 0.9% 250 ML INJ 250 ML ONE (13:52)
[2017-08-15] MEDS ORDERED: ceFAZolin INJ 1,000 MG VIAL ONE (13:52)
[2017-08-15] MEDS ORDERED: VANCOMYCIN HCL 1000 MG VIAL ONE (13:52)
[2017-08-15] MEDS ORDERED: VASOPRESSIN 20 UNITS/ML VIAL ONE (14:30)
--- NOTE | 2017-08-15 16:11 | MP ---
cc: Gerry Andrade MD DATE OF OPERATION: 08/15/2017 PROCEDURE PERFORMED: Single chamber AICD implantation via the right subclavian vein. INDICATION FOR PROCEDURE: Severe ischemic cardiomyopathy, primary prevention of sudden cardiac . OPERATIVE NOTES: The patient was brought to the operating suite in a fasting state after having signed informed consent. The left upper chest was prepped and draped as per policy and anesthetized with 1% lidocaine. A transverse incision was made inferior to the left clavicle and using blunt dissection, a subcutaneous pocket was formed down to the pectoralis fascia. After administration of contrast through a left arm peripheral IV, central venous access was obtained via the left subclavian vein without difficulty. 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 We attempted to regain access via the left subclavian vein, but the course of the guidewire once again suggested persistent left SVC. The pocket was closed using 3-0 Vicryl interrupted stitches in 2 layers to close the subcutaneous tissue and then 4-0 Monocryl running stitch to close the subcuticular tissue. Overlapping Steri-Strips and a dressing were applied. The right upper chest was also previously prepped and draped as per policy and then anesthetized with 1% lidocaine. A transverse incision was made inferior to the right clavicle and, using blunt dissection, a subcutaneous pocket was formed down to the pectoralis fascia. After administration of contrast through a right arm peripheral IV, central venous access was obtained via the right subclavian vein using modified Seldinger technique and an 8-Persian sheath placed. Through this sheath, a ventricular active fixation lead was introduced and its tip positioned in the right ventricular apex where good current of injury, stimulation threshold (1.2 volts) and sensitivity (12.9 millivolts) were demonstrated. This lead also has atrial sensing capability and the atrial sensing was measured at 4.1 millivolts. The lead was secured into place using 2-0 silk ties down to the pectoralis fascia. The lead was then connected to the AICD generator, which is a Biotronik [employer] device. The lead and the generator were placed into the subcutaneous pocket, which was closed using 3-0 Vicryl interrupted stitches in 2-3 layers to close the subcutaneous tissue and then 4-0 Monocryl in a running stitch to close the subcuticular tissue. Overlapping Steri-Strips and a dressing were applied. There were no apparent immediate complications. A portable chest x-ray is pending at the time of this dictation. CONCLUSIONS: 1. 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 2. Status post successful implantation of a single-chamber (with atrial sensing capability) automated implantable cardioverter defibrillator via the right subclavian vein using a USEREADYronik Intica automated implantable cardioverter defibrillator generator. Gerry Andrade MD GHMercedes/JANN , 03:56 PM , 04:09 PM MTDConnie
[2017-08-15] MEDS ORDERED: DO NOT ADM ANY ANTICOAGULANT DRUGS PRN (16:20)
--- NOTE | 2017-08-15 16:23 | CATHPROC ---
[place] HIS Report Study Information Study Number Admission Scheduled Start Study Start [id number] Aug 13 2017 12:25PM 08/15/2017 Aug 15 2017 2:01PM [place] [employer] Service Cardiac Pacer/ICD Admit Source Facility Department Other [facility] - Continuous Pillowcase Cutter Physician and Clinical Staff Initial Gerry Barakat Furnace Combustion Analyst Michi Davalos,RT(R) Furnace Combustion Analyst Guerita Casteloln,SANDRA Other Anesthesia, MASTER PLANNER Recorder Mahnaz Wilhelm ,BSN Recorder Sarah Carreno,SHAMIR TECH2 Scrub Amy Sellers,RT(R) TECH2 Procedures Performed Procedure Location (Site) Vessel Name Lead Insertion Venogram Subclav. Vein (Lft Subclavian Vein Venogram Subclav. Vein (Rt) Subclavian Vein Equipment Time Funnel Setter Description Size Mfg Part Number Used/Scraped DEFIBRILLATOR, INTICA 7 VR-T 15:13 BIOTRONIK VVE-VDDR [id number] Used DX 15:00 BIOTRONIK LEAD, PLEXA PRO-MRI DF 65/15 [id number] Used [id number] 14:41 MetroMile DRAPE, IOBAN 2 [id number] 26cm x 20cm Used *[id number] TP-1103 14:08 MetroMile SUTURE, STRIP PLUS 1/2" * Used *[id number] 14:08 MEDLINE PACER ADHESIVE, MASTISOL 2/3CC 2/3CC 0523-48 Used 14:08 MEDLINE PACER ALEXANDER, LIMB * 2530 *[id number] Used [id number] 14:08 MEDLINE PACER PACK, PACER CUSTOM * Used *[id number] 14:08 MEDLINE PACER PEN, SKIN DUAL W/ RULER * Used *[id number] 14:14 [employer] PACER SAFE SHEATH, FR8, 13CM FR 8 [id number] Used 14:02 Needle Sponge Count 2 22 Used 14:02 Needle Sponge Count 2 2 Used 14:02 Needle Sponge Count 30 1 Used 14:33 NYCOMED OMNIPAQUE, 350 MG, 50ML 50ML [id number] Used [id number] *[id number] SUTURE, 3-0 VICRYL [SH] ([id number]) SUTURE, 3-0 VICRYL [SH] ([id number]) SUTURE, 3-0 VICRYL [SH] ([id number]) SUTURE, 3-0 VICRYL [SH] ([id number]) SUTURE, 4-0 MONOCRYL [PS2] (Y496G) [id number] 14:08 [employer],WARM AIR CCL * Used *[id number] [facility] PAD, ELECTROSURGICAL 14:08 * [id number] *[id number] Used SURGICAL GROUNDING ORANGE 4401-4000 14:08 [employer] MEDICAL HAR[employer]. / * Used *80515 Equipment Model, Serial, Lot Number and Expiration Data Description Model Number Serial Number Lot Number Expiration Date DEFIBRILLATOR, INTICA 7 VR-T DX [id number] 11-24-2018 LEAD, PLEXA PRO-MRI DF 65/15 [id number] 05-25-2019 History: Allergies Allergy Reaction No Known Allergies History: Risk Factors Previous Heart Failure Yes Prior PCI Prior CABG No Yes Chronic Lung Disease Yes Labs Hgb (g/dl) Hct (%) RBC (MIL/MM3) WBC (l/cumm) Platelets (thousands) 11.60-17.00 35.00-51.00 4.00-5.90 4.00-11.00 150.00-450.00 13.0 39 4.4 7.6 128 Glucose (mg/dl) BUN (mg/dl) Creatinine (mg/dl) BUN:Creatinine (1:x) 74.00-106.00 7.00-18.00 0.50-1.30 10.00-20.00 109 17 1.0 17 Na (meq/l) K (meq/l) 136.00-145.00 3.50-5.10 145 3.7 INR (PTT:PT) 0.90-1.10 1.1 Medication Medication Total Dose (Bolus/Oral) Medication Total Dosage/Unit 2% XYLOCAINE 60 mL Medications (Bolus/Oral) Medication Time Given Dosage/Unit Administered By Reason 2% XYLOCAINE 08/15/2017 2:30:20 PM 20 mL Gerry Andrade 20 mL 2% XYLOCAINE given in lab by Gerry Andrade via Subcutaneous. Ordered by Gerry Andrade. Left Upper Chest 2% XYLOCAINE 08/15/2017 2:47:29 PM 40 mL Gerry Andrade 40 mL 2% XYLOCAINE given in lab by Gerry Andrade in Right shoulder via Subcutaneous. Ordered by Gerry Andrade. Medication (Drip) Medication Time Given Dosage/Unit Concentration/Unit Diluent (ml) Solution ANCEF 08/15/2017 2:04:32 PM 1 g 1 g ANCEF given by Anesthesia, MASTER PLANNER via Peripheral IV. Ordered by Gerry Andrade. VANCOCIN 08/15/2017 2:02:45 PM 1 mg 1 mg VANCOCIN given by Anesthesia, MASTER PLANNER via Peripheral IV. Ordered by Gerry Andrade. Initial Case Assessment Cardiovascular HR Rhythm NIBP Chest Pain 106 st 116/72 0 Edema Present Skin color Skin Mild Normal Warm Circulatory - Right Pulses Radial 1 Scale (0,1,2,3,4,d) Circulatory - Left Pulses Radial 1 Scale (0,1,2,3,4,d) Circulatory - Lower Extremities Color Lower Right Color Lower Left Normal Normal Neurological State Oriented to time-place- Alert Moves all extremities person Respiration - General Respiration Rate SpO2 (%) (B/min) 18 92 Final Case Assessment Cardiovascular HR Rhythm NIBP Chest Pain 71 sr 98/60 0 Edema Present Skin color Skin None Normal Warm Dry Neurological State Oriented to time-place- Lethargic Moves all extremities person Respiration - General Respiration Rate SpO2 (%) (B/min) 16 92 Chronological Log Time Study Chronological Log 13:32:00 Patient arrived via Bed. 13:32:00 Patient Name, D.O.B, / Armband Verified By R.N. 13:32:37 Consent signed by the physician and the patient and verified by the Continuous Pillowcase Cutter staff. 13:32:43 Pre-op and post- op instructions given; patient acknowledges understanding of instructions. 13:33:11 History and physical on the chart or being dictated. 13:33:54 Patient has been NPO for More than 6Hrs. 13:33:59 Skin Breakdown-none per pt 13:36:02 Patient Warmer Placed on the Table. 13:36:10 Disposable Defibrillator Pads Placed On Patient. 13:36:15 Kita Prominences Protected 13:38:21 A # 20 IV was noted in the Forearm (right). Grade = 0 0.9ns kvo 13:38:50 A # 20 IV was noted in the Antecubital (left). Grade = 0 0.9ns kvo 13:43:49 Anesthesia at bedside. Assumes care of patient. Gunjan Demarco 13:51:19 2% CHLORHEXIDINE GLUCONATE WASH AND NASAL SWIPE DONE PRIOR TO PROCEDURE. 13:51:29 Bovie ground pad applied to: right thigh 13:57:30 Table restraints applied according to hospital policy 14:00:56 Upper Chest Prepped Times Two. First Sponge And Instrument Count Done by Amy Sellers, RT(R) TECH2. 14:01:39 Hypo's: 2, Sponges: 30, Bovie/scratch: 2 Sutures: 6, Blades: 2, Instruments: 26, Syveck Patches: ~SYVECK PATCH~ Assessment: Initial Case, AQ=538 BPM, Rhythm=st, AHVT=969/72 mmhg, Chest Pain=0, Edema=Mild, Co zeeshan=Normal, Skin = Warm Right Pulses: Radial=1 Left Pulses: Radial=1 14:02:13 Lower Right Extremities: Color=Normal Lower Left Extremities: Color=Normal Neurological: State=Alert, Ox3, AGEE Respiration: Resp=18 B/min, SpO2=92 % 14:02:45 1 mg VANCOCIN given by Anesthesia, MASTER PLANNER via Peripheral IV. Ordered by Gerry Andrade. 14:04:32 1 g ANCEF given by Anesthesia, MASTER PLANNER via Peripheral IV. Ordered by Gerry Andrade. 14:17:16 MD paged 14:18:22 Bilateral Upper Chest Prepped Times Two. patient draped after a 3 min dry time 14:18:53 Anesthesia placed LMA 14:23:05 MD arrived. 14:29:03 Reference ECG taken Time Out. Correct patient, procedure, procedure equipment, site and side verified with physicia n present. Time 14:29:42 concurred by MD, individual staff and MASTER PLANNER. 14:30:04 Case Start 14:30:20 20 mL 2% XYLOCAINE given in lab by Gerry Andrade via Subcutaneous. Ordered by Gerry Andrade. Left Upper Chest 14:31:32 The Subclav. Vein (Lft was manually injected with 20 cc's of contrast. OMNIPAQUE, 350 MG, 5 0ML 50ML used. 14:32:29 Surgical Incision Made. 14:33:11 A pocket was created at the L Upper Chest. 14:38:09 access attempted to Left subclavian vein without success. Converting to right sided device 14:39:10 The pocket is being closed. Second Sponge And Instrument Count Done by Amy Sellers, RT(R) TECH2. 14:40:02 Hypo's: 2, Sponges: 40, Bovie/scratch: 2 Sutures: 6, Blades: 2, Instruments: 26, Syveck Patches: ~SYVECK PATCH~ 14:40:53 Ioban applied to left upper chest 14:47:29 40 mL 2% XYLOCAINE given in lab by Gerry Andrade in Right shoulder via Subcutaneous. Ordered by Gerry Andrade. 14:48:32 The Subclav. Vein (Rt) was manually injected with 20 cc's of contrast. OMNIPAQUE, 350 MG, 5 0ML 50ML used. 14:49:05 Surgical Incision Made. RIGHT UPPER CHEST 14:50:14 A pocket was created at the R Upper Chest. 14:52:03 Two antibiotic sponges put into the surgical pocket. RIGHT SIDE 14:54:26 Vascular access was obtained in the Subclav. Vein (Rt). 14:54:39 A SAFE SHEATH, FR8, 13CM FR 8 was advanced into the Subclav. Vein (Rt) using the Modified S eldinger technique. 15:00:35 A LEAD, PLEXA PRO-MRI DF 65/15 was inserted and positioned in the RV. 15:04:13 Lead placement verified under fluoroscopy 15:04:15 The RV lead impedance and threshold being tested. 15:09:58 The RV lead impedance and threshold being tested. 15:12:04 The RV lead was sutured to the fascia. 15:15:41 Antibiotic sponges removed from the surgical pocket. 15:18:31 A DEFIBRILLATOR, INTICA 7 VR-T DX VVE-VDDR was connected and placed in the pocket. 15:24:01 The pocket is being closed. Second Sponge And Instrument Count Done by Guerita Castellon RN. 15:24:03 Hypo's: 2, Sponges: 40, Bovie/scratch: bovie/scratch Sutures: ~SUTURE~, Blades: ~BLADES~, Instruments: ~INSTRU~, Syveck Patches: ~SYVECK PATCH~ 15:42:16 CONTINUING TO CLOSE 15:48:03 The pocket was closed. 15:48:21 Case End The Final Sponge And Instrument Count Done by Guerita Castellon RN. Hypo's: 2, [id number], Bovie/scratch: 2 15:49:40 Sutures: 10, Blades: 2, Instruments: 26, Syveck Patches: ~SYVECK PATCH~ TOTAL OF 40 SPONGES/AND AMY LIT 15:52:29 PACU called. Spoke to Bernadine 15:53:09 Implant Procedure was performed. 15:53:13 A ICD Implant . (Single) 15:53:25 Bedside Report will be given. 15:53:53 No case complications noted. 15:53:54 Cine recording checked. 15:53:58 Implantable Device card placed in patient's chart. 15:58:47 Sterile dressing applied to site 16:01:34 Patient extubated Assessment: Final Case, HR=71 BPM, Rhythm=sr, NIBP=98/60 mmhg, Chest Pain=0, Edema=None, Color= Normal, Skin = Warm, Dry 16:01:42 Neurological: State=Lethargic, Ox3, AGEE Respiration: Resp=16 B/min, SpO2=92 % 16:03:27 A sling was placed on the affected arm. 16:05:10 Patient moved to [facility] End Study - Contrast Media Used In Study Contrast Total Opened (mL) Total Used (mL) Total Wasted (mL) Omnipaque 50 50 0 End Study - Maximum Contrast Load Max Contrast Load (mL) 463.0 End Study - Radiation Exposure Fluoro Time (minutes) 6.7 End Study - Patient Disposition Complications Transferred To Interventional Outcome No Telemetry Bed successful
[2017-08-15] MEDS ORDERED: *RESP: ALBUTEROL 2.5 MG/3 ML NEB (PRN) PERIprocedural Use ONLY NEB ONE (16:40)
--- NOTE | 2017-08-15 17:18 | RADRPT ---
EXAM DATE: 08/15/2017 5:04 PM EDT AGE/SEX: 76 years / Male INDICATIONS: Evaluate for bilateral pneumothorax. CLINICAL DATA: This is the patient's subsequent encounter. Patient reports that signs and symptoms h ave been present for 3 days and indicates a pain score of 0/10. MEDICAL/SURGICAL HISTORY: . Myocardial infarction. Congestive heart failure. Appendectomy. CA BG. Coronary artery stent COMPARISON: [facility] [place], CHEST SINGLE AP, 08/13/2017. . FINDINGS: A pacing implement is present with control pack over the right upper chest. There is no ev idence of pneumothorax. Diffuse bilateral pleural-parenchymal opacities are present, similar to prior . Cardiac contours are grossly unchanged. Sternotomy wires are noted. CONCLUSION: No pneumothorax following pacer placement Electronically signed by: Gregorio Armstrong MD 08/15/2017 5:17 PM EDT
[2017-08-15] MEDS: ENOXAPARIN SODIUM 40 MG/0.4 ML SYRINGE SQ SCH (18:19)
[2017-08-15] MEDS: traMADol HCL 50 MG TAB PO PRN (18:58)
[2017-08-16] VITALS (17 sets, daily range): BP systolic 101–114; BP diastolic 54–65; PULSE 64–82; RESP 16–20; TEMP 97.3–98; O2SAT 94–96
[2017-08-16] MEDS: traMADol HCL 50 MG TAB PO PRN (00:59)
[2017-08-16] MEDS ORDERED: VANCOMYCIN INJ 1,000 MG in SODIUM CHLOR 0.9% 250 ML INJ 250 ML IV ONE (04:00)
[2017-08-16 06:45] LABS: AUTOMATED NEUTROPHIL # 7.7 TH/MM3 (1.8-7.7); BASOPHIL # 0.1 TH/MM3 (0-0.2); BASOPHIL % 0.5 % (0.0-2.0); EOSINOPHIL # 0.2 TH/MM3 (0-0.4); EOSINOPHIL % 1.9 % (0.0-4.0); HEMATOCRIT 40.8 % (39.0-51.0); HEMOGLOBIN 13.4 GM/DL (13.0-17.0); LYMPH % 15.3 % (9.0-44.0); LYMPHOCYTE # 1.6 TH/MM3 (1.0-4.8); MEAN CELL VOLUME 89.9 FL (80.0-100.0); MEAN CORPUSCULAR HEMOGLOBIN 29.6 PG (27.0-34.0); MEAN CORPUSCULAR HGB CONC 32.9 % (32.0-36.0); MEAN PLATELET VOLUME 9.1 FL (7.0-11.0); MONO % 7.1 % (0.0-8.0); MONOCYTE # 0.7 TH/MM3 (0-0.9); NEUT % 75.2 % (16.0-70.0); PLATELET COUNT 136 TH/MM3 (150-450); RED BLOOD COUNT 4.54 MIL/MM3 (4.50-5.90); RED CELL DISTRIBUTION WIDTH 16.4 % (11.6-17.2); WHITE BLOOD COUNT 10.2 TH/MM3 (4.0-11.0)
[2017-08-16 07:17] LABS: BICARBONATE 25.4 MEQ/L (21.0-32.0); CALCIUM 8.7 MG/DL (8.5-10.1); CREATININE 1.07 MG/DL (0.60-1.30)
[2017-08-16] MEDS ORDERED: IOHEXOL 350 MG/ML 50 ML BTL (for Cath Lab) OTHER ONE (07:30)
--- NOTE | 2017-08-16 08:22 | HHI.FPPN ---
Subjective Remarks Mr. Siddiqui was afebrile with stable vital signs overnight. POD1 from AICD placement. Per EMR, he had 3865ml urine output (net -2865ml) overnight and lost 0.3kg. Patient reports doing well overall. He reports right sided chest pain which he attributes to surgical incision and not being able to move his right arm. No shortness of breath. He reports that his urine is more dark this morning but he does not have urgency, pain with urination, or abdominal pain. He states that he has had blood in urine in the past which was addressed at [facility] previously. No stool concerns. (Ismael Goldman MD R3) Objective Vitals Vital Signs Date Time Temp Pulse Resp B/P (MAP) Pulse Ox O2 Delivery O2 Flow Rate FiO2 08/16/17 07:48 97.3 76 16 114/65 (81) 95 08/16/17 06:00 82 08/16/17 05:00 68 08/16/17 04:02 97.5 67 18 104/57 (73) 95 08/16/17 04:00 66 08/16/17 03:48 95 Nasal Cannula 3.00 08/16/17 03:00 66 08/16/17 02:00 64 08/16/17 01:59 18 08/16/17 01:00 68 08/16/17 00:00 74 08/16/17 00:00 97.6 70 20 101/54 (70) 95 08/15/17 23:00 68 08/15/17 22:00 70 08/15/17 21:00 70 08/15/17 20:00 97.7 73 18 104/56 (72) 93 08/15/17 20:00 93 Room Air 08/15/17 20:00 74 08/15/17 19:00 74 08/15/17 18:48 97.8 77 16 116/70 (85) 08/15/17 17:35 93 Nasal Cannula 2.00 08/15/17 17:00 97.6 72 18 128/62 (84) 93 Nasal Cannula 3 08/15/17 16:45 70 18 119/59 (79) 92 Nasal Cannula 3 08/15/17 16:30 70 17 134/62 (86) 92 Nasal Cannula 3 08/15/17 16:28 73 17 141/66 (91) 92 Nasal Cannula 3 08/15/17 16:14 97.5 69 17 102/56 (71) 92 Simple Mask 6 08/15/17 12:00 97.9 72 20 107/70 (82) 91 08/15/17 11:07 Nasal Cannula 2.00 08/15/17 10:16 Room Air I/O 08/15/17 08/15/17 08/15/17 08/16/17 08/16/17 08/16/17 07:00 15:00 23:00 07:00 15:00 23:00 Intake Total 0 ml 1040 ml Output Total 250 ml 3515 ml 350 ml 250 ml Balance -250 ml -2475 ml -350 ml -250 ml Intake Oral 0 ml 240 ml Other 800 ml Output Urine Total 250 ml 3500 ml 350 ml 250 ml Estimated Blood Loss 15 ml # Voids 3 1 # Bowel Movements 0 0 (Ismael Goldman MD R3) Result Diagram: 08/16/17 0623 08/16/17 0623 Imaging Last Impressions Chest X-Ray 08/15/17 1557 Signed Impressions: CONCLUSION: No pneumothorax following pacer placement Myocardial Perfusion Scan Nuc Med 08/14/17 0000 Signed Impressions: Service Date/Time: Monday, August 14, 2017 13:29 - CONCLUSION: Dilated LV. Severe LV dysfunction. Mild lateral ischemia. RISK CATEGORY: High (>3%% Annual Mortality Rate) Gregorio Armstrong MD Objective Remarks GENERAL: No acute distress; sitting in bed SKIN: Bilateral upper chest wall transverse incisions with dressings intact; no visible drainage. EYES: EOM grossly I. No conjunctival injection or drainage. ENT: MMM CARDIOVASCULAR: Regular rate and rhythm; no murmurs. Normal peripheral perfusion. RESPIRATORY: Improved from prior exam; decreased work of breathing. Normal rate. Previously audible inspiratory crackles not as audible; decreased breath sounds GASTROINTESTINAL: Abdomen soft, non-distended, non-tender MUSCULOSKELETAL: No significant lower extremity edema; improved from prior exam. No calf asymmetry. Grossly normal motor function and range of motion NEUROLOGICAL: Awake and alert. Cranial nerves grossly intact. Grossly normal peripheral motor/sensory function. Normal speech. (Ismael Goldman MD R3) A/P Assessment and Plan 76 yo with severe CHF presenting with: Discharge Planning Discharge after clearance by Cardiology (Ismael Goldman MD R3) Attending Attestation Patient seen and examined. Case reviewed and discussed with the resident team. Agree with plan of care as discussed with me and documented in the resident note. he very much wants to go home. he may get fluid overload in the future. will send a [facility] nurse to help monitor and educate (Charity Bojorquez MD) Problem List: (1) Acute exacerbation of CHF (congestive heart failure) ICD Codes: I50.9 - Heart failure, unspecified Status: Acute Plan: Impression: Exam and history classic for CHF exacerbation. BNP > 1000 on admission-> 828 (08/15). CXR 08/13- increasing bilateral lower lung infiltrates Nuclear stress test 08/14- Dilated. Severe LV dysfunction. Mild lateral ischemia. High risk AICD placed 08/16 -1.5 L fluid restriction -2 gm sodium restriction -Strict I&Os -CHF education -Cardiology consulted -Continue home Coreg -Continue Entresto 24mg/26mg BID -POD1 AICD placement -Lasix 40 mg IV BID for now, will plan to decrease once he diureses (2) Elevated troponin ICD Codes: R74.8 - Abnormal levels of other serum enzymes Status: Chronic Plan: Impression: On record review troponin ranges from 0.12-0.15. Initial troponin 0.18. Initial EKG on admission without interval changes -Troponins trended- no significant increase from ~0.2 -EKG's trended- no significant changes -Nuclear stress test (08/14)- mild lateral ischemia; severe LV dysfunction (3) CAD (coronary artery disease) ICD Codes: I25.10 - Atherosclerotic heart disease of [place] coronary artery without angina pectoris Status: Chronic Plan: Impression: Stable, asymptomatic at present. Nuclear stress test 08/14 suggested small lateral ischemia presumed secondary to occluded vein graft to obtuse marginal per Cardiology -ASA daily -Continue Carvedilol 25mg BID -Continue Entresto -Continue Fenofibrate; not on statin; will review EMR further -Will order NTG if patient develops chest pain (4) COPD (chronic obstructive pulmonary disease) ICD Codes: J44.9 - Chronic obstructive pulmonary disease, unspecified Status: Chronic Plan: Stable -Continue home Advair -DuoNebs PRN (5) Benign prostatic hyperplasia Status: Chronic Plan: Stable -Continue home finasteride (6) Urine abnormality ICD Codes: R82.90 - Unspecified abnormal findings in urine Status: Acute Plan: Impression: Unclear etiology; patient reports change in urination and history of hematuria. No dysuria -Will check UA (7) FEN/PPX Plan: Fluids: None (see above) Electrolytes: Monitor and replace PRN -Hypokalemia: Continue 20 meq potassium BID; will monitor Nutrition: Diet heart healthy with restrictions noted above DVT: Lovenox 40 mg SQ daily GI: Continue home pantoprazole (Ismael Goldman MD R3) Problem Qualifiers (1) Acute exacerbation of CHF (congestive heart failure): Qualified Codes: I50.23 - Acute on chronic systolic (congestive) heart failure (2) CAD (coronary artery disease): Qualified Codes: I25.10 - Atherosclerotic heart disease of [place] coronary artery without angina pectoris (3) COPD (chronic obstructive pulmonary disease): Qualified Codes: J44.9 - Chronic obstructive pulmonary disease, unspecified (4) Benign prostatic hyperplasia: Qualified Codes: N40.1 - Benign prostatic hyperplasia with lower urinary tract symptoms; R35.0 - Frequency of micturition Ismael Goldman MD R3 August 16, 2017 08:22 Charity Bojorquez MD August 17, 2017 11:52
--- NOTE | 2017-08-16 08:27 | PD.CARD.PN ---
Subjective Subjective Remarks No CP, dyspnea, dizziness, palpitations, PND. Minimal incisional pain. Objective Medications Item Value Date Time Sacubitril/ 1 tab 08/14/17 2100 Valsartan BID/PO 08/15/172138 (Entresto 24-26 Mg) Aspirin 81 mg 08/14/17 0900 (Aspirin Chew) DAILY/CHEW 08/15/1724 Fenofibrate 48 mg 08/14/17 0900 (Tricor) DAILY/PO 08/15/1724 Carvedilol 25 mg 08/13/17 2100 (Coreg) BID/PO 08/15/172137 Furosemide 40 mg 08/13/17 1800 (Lasix Inj) BID@/IVP 08/15/17 1820 Enoxaparin Sodium 40 mg 08/13/17 1400 (Lovenox Inj) Q24H/SQ Current Medications Medications (Trade) Dose Ordered Sig/Matt Route Start Time Stop Time Status Last Admin (NS Flush) 2 ml BID IV FLUSH 08/13/17 21:00 08/15/17 21:39 (NS Flush) 2 ml UNSCH PRN IV FLUSH 08/13/17 13:00 (Lasix Inj) 40 mg BID@ IVP 08/13/17 18:00 08/15/17 18:20 (KCl) 20 meq BID PO 08/13/17 21:00 08/15/17 21:39 (Lovenox Inj) 40 mg Q24H SQ 08/13/17 14:00 08/14/17 16:55 (Aspirin Chew) 81 mg DAILY CHEW 08/14/17 09:00 08/15/17 08:24 (Coreg) 25 mg BID PO 08/13/17 21:00 08/15/17 21:38 (Proscar) 5 mg DAILY PO 08/14/17 09:00 08/15/17 08:24 (Theragran M Tab) 1 tab DAILY PO 08/14/17 09:00 08/15/17 08:24 (Protonix) 40 mg DAILY PO 08/14/17 09:00 08/15/17 08:24 (Tricor) 48 mg DAILY PO 08/14/17 09:00 08/15/17 08:24 (Claritin) 10 mg DAILY PO 08/14/17 09:00 08/15/17 08:24 (Symbicort 160-4.5 Mcg Inh) 2 puff BID INH 08/13/17 21:00 08/15/17 22:49 (Entresto 24-26 Mg) 1 tab BID PO 08/14/17 21:00 08/15/17 21:39 Sodium Chloride 1,000 ml @ 75 mls/hr [id number] IV 08/15/17 08:00 08/15/17 08:23 Cefazolin Sodium 1000 mg/Sodium Chloride 250 ml @ 0 mls/hr GEOLOGICAL SAMPLE TESTER IV 08/15/17 13:30 08/15/17 14:04 Vancomycin HCl 1000 mg/Sodium Chloride 250 ml @ 0 mls/hr GEOLOGICAL SAMPLE TESTER IV 08/15/17 13:30 08/15/17 14:02 (Betadine 5% Antisepsis Kit) 1 applic GEOLOGICAL SAMPLE TESTER TOPICAL 08/14/17 17:00 (Bactroban Nasal 2% Oint) 1 applic GEOLOGICAL SAMPLE TESTER EACH NARE 08/14/17 17:00 (Chlorhexidine 2% Cloth) 1 pack GEOLOGICAL SAMPLE TESTER TOPICAL 08/14/17 17:00 (Ultram) 50 mg Q6HR PRN PO 08/15/17 16:00 08/16/17 00:59 ([facility] [place] [facility]) ALL NURSING DEPARTME... UNSCH PRN .XX 08/15/17 16:20 08/16/17 16:19 Vital Signs / I&O Vital Signs Date Time Temp Pulse Resp B/P (MAP) Pulse Ox O2 Delivery O2 Flow Rate FiO2 08/16/17 07:48 97.3 76 16 114/65 (81) 95 08/16/17 06:00 82 08/16/17 05:00 68 08/16/17 04:02 97.5 67 18 104/57 (73) 95 08/16/17 04:00 66 08/16/17 03:48 95 Nasal Cannula 3.00 08/16/17 03:00 66 08/16/17 02:00 64 08/16/17 01:59 18 08/16/17 01:00 68 08/16/17 00:00 74 08/16/17 00:00 97.6 70 20 101/54 (70) 95 08/15/17 23:00 68 08/15/17 22:00 70 08/15/17 21:00 70 08/15/17 20:00 97.7 73 18 104/56 (72) 93 08/15/17 20:00 93 Room Air 08/15/17 20:00 74 08/15/17 19:00 74 08/15/17 18:48 97.8 77 16 116/70 (85) 08/15/17 17:35 93 Nasal Cannula 2.00 08/15/17 17:00 97.6 72 18 128/62 (84) 93 Nasal Cannula 3 08/15/17 16:45 70 18 119/59 (79) 92 Nasal Cannula 3 08/15/17 16:30 70 17 134/62 (86) 92 Nasal Cannula 3 08/15/17 16:28 73 17 141/66 (91) 92 Nasal Cannula 3 08/15/17 16:14 97.5 69 17 102/56 (71) 92 Simple Mask 6 08/15/17 12:00 97.9 72 20 107/70 (82) 91 08/15/17 11:07 Nasal Cannula 2.00 08/15/17 10:16 Room Air I/O 08/15/17 08/15/17 08/15/17 08/16/17 08/16/17 08/16/17 07:00 15:00 23:00 07:00 15:00 23:00 Intake Total 0 ml 1040 ml Output Total 250 ml 3515 ml 350 ml 250 ml Balance -250 ml -2475 ml -350 ml -250 ml Intake Oral 0 ml 240 ml Other 800 ml Output Urine Total 250 ml 3500 ml 350 ml 250 ml Estimated Blood Loss 15 ml # Voids 3 1 # Bowel Movements 0 0 Physical Exam GENERAL: Well developed, well nourished. No acute distress. HEENT: Jugular venous pressure is normal. CHEST: Diminished breath sounds bases. CARDIAC: Regular rate and rhythm without S3, S4, or murmur. ABDOMEN: Soft, nontender, no hepatosplenomegaly. Bowel sounds present. EXTREMITIES: No clubbing, cyanosis, or edema. Laboratory Laboratory Tests Test 08/16/17 06:23 White Blood Count 10.2 TH/MM3 Red Blood Count 4.54 MIL/MM3 Hemoglobin 13.4 GM/DL Hematocrit 40.8 % Mean Corpuscular Volume 89.9 FL Mean Corpuscular Hemoglobin 29.6 PG Mean Corpuscular Hemoglobin Concent 32.9 % Red Cell Distribution Width 16.4 % Platelet Count 136 TH/MM3 Mean Platelet Volume 9.1 FL Neutrophils (%) (Auto) 75.2 % Lymphocytes (%) (Auto) 15.3 % Monocytes (%) (Auto) 7.1 % Eosinophils (%) (Auto) 1.9 % Basophils (%) (Auto) 0.5 % Neutrophils # (Auto) 7.7 TH/MM3 Lymphocytes # (Auto) 1.6 TH/MM3 Monocytes # (Auto) 0.7 TH/MM3 Eosinophils # (Auto) 0.2 TH/MM3 Basophils # (Auto) 0.1 TH/MM3 CBC Comment DIFF FINAL Differential Comment Blood Urea Nitrogen 18 MG/DL Creatinine 1.07 MG/DL Random Glucose 105 MG/DL Calcium Level 8.7 MG/DL Sodium Level 142 MEQ/L Potassium Level 3.6 MEQ/L Chloride Level 107 MEQ/L Carbon Dioxide Level 25.4 MEQ/L Anion Gap 10 MEQ/L Estimat Glomerular Filtration Rate 67 ML/MIN Imaging Last 24 hours Impressions Chest X-Ray 08/15/17 3657 Signed Impressions: CONCLUSION: No pneumothorax following pacer placement Assessment and Plan Problem List: (1) CHF (congestive heart failure) ICD Codes: I50.9 - Heart failure, unspecified Status: Acute Plan: Overall good diuresis since admission. Recommend continue carvedilol, Entresto. Recent echo shows EF 20%. Can change IV furosemide back to oral torsemide that he usually takes at home but higher dose, 40 mg daily. OK to discharge later today from my standpoint. (2) S/P implantation of automatic cardioverter/defibrillator (AICD) ICD Codes: Z95.810 - Presence of automatic (implantable) cardiac defibrillator Status: Acute Plan: ICD site OK. ICD re-interrogation shows stable, good pacing/ defibrillatory parameters. To rx Levaquin 500 mg qd x 7 days. (3) Ischemic cardiomyopathy ICD Codes: I25.5 - Ischemic cardiomyopathy Status: Chronic Plan: Overall doing better since admission. Good diuresis achieved. Recommend continue beta richi, Entresto, change to oral diuretic. (4) CAD (coronary artery disease) ICD Codes: I25.10 - Atherosclerotic heart disease of [place] coronary artery without angina pectoris Status: Chronic Plan: Stable. No definite angina symptoms. No further atypical CP's. Overall small area of lateral ischemia noted on nuclear stress testing, likely corresponding to know occluded vein graft to obtuse marginal. REC medical therapy of his CAD Code Status full code Discussed Condition With patient Problem Qualifiers (1) CHF (congestive heart failure): Qualified Codes: I50.23 - Acute on chronic systolic (congestive) heart failure (2) CAD (coronary artery disease): Qualified Codes: I25.10 - Atherosclerotic heart disease of [place] coronary artery without angina pectoris Gerry Andrade MD August 16, 2017 08:27
[2017-08-16] MEDS: LORATADINE 10 MG TAB PO SCH (08:40)
[2017-08-16] MEDS: SACUBITRIL/VALSARTAN 24 MG-26 MG TAB PO SCH (08:41)
[2017-08-16] MEDS: FINASTERIDE 5 MG TAB PO SCH (08:42)
[2017-08-16] MEDS: FENOFIBRATE 48 MG TAB PO SCH (08:42)
[2017-08-16] MEDS: MULTIVITAMINS/MINERALS THERAPEUTIC TAB PO SCH (08:42)
[2017-08-16] MEDS: POTASSIUM CHLORIDE 20 MEQ CONTROLLED RELEASE TAB PO SCH (08:42)
[2017-08-16] MEDS: ASPIRIN 81 MG CHEW TAB CHEW SCH (08:43)
[2017-08-16] MEDS: PANTOPRAZOLE SOD 40 MG DELAYED RELEASE TAB PO SCH (08:43)
[2017-08-16] MEDS ORDERED: TORSEMIDE 20 MG TAB PO SCH (09:00)
[2017-08-16] MEDS: BUDESONIDE-FORMOTEROL 160/4.5 MCG INHALER INH SCH (09:00)
[2017-08-16] MEDS: CARVEDILOL 12.5 MG TAB PO SCH (09:26)
[2017-08-16 09:48] LABS: BILIRUBIN, URINE NEG (NEG); BLOOD, URINE NEG (NEG); GLUCOSE,URINE NEG (NEG); KETONE, URINE NEG (NEG); MUCUS URINE FEW /lpf (OCC); NITRITE,URINE NEG (NEG); URINE COLOR YELLOW (YELLW/STRAW); URINE LEUKOCYTE ESTERASE NEG (NEG)
[2017-08-16] MEDS: SODIUM CHLORIDE 0.9% FLUSH 10 ML FLUSH IV FLUSH SCH (10:33)
--- NOTE | 2017-08-16 11:53 | HHI.DCPOC ---
Discharge Care Plan Diagnosis: (1) Acute exacerbation of CHF (congestive heart failure) (2) History of placement of internal cardiac defibrillator (3) CAD (coronary artery disease) (4) COPD (chronic obstructive pulmonary disease) Goals to Promote Your Health * To prevent worsening of your condition and complications * To maintain your health at the optimal level Directions to Meet Your Goals Take your medications as prescribed Follow your dietary instruction Follow activity as directed Keep your appointments as scheduled Take your immunizations and boosters as scheduled If your symptoms worsen call your PCP, if no PCP go to Urgent Care Center or Emergency Room Smoking is Dangerous to Your Health. Avoid second hand smoke Call the 24-hour hour crisis hotline for domestic abuse at Ismael Goldman MD R3 August 16, 2017 11:53
--- NOTE | 2017-08-16 11:57 | HHI.FF ---
Face to Face Verification Diagnosis: (1) Acute exacerbation of CHF (congestive heart failure) (2) CAD (coronary artery disease) (3) COPD (chronic obstructive pulmonary disease) (4) S/P implantation of automatic cardioverter/defibrillator (AICD) Physical Therapy Order: Evaluate and Treat Home Health Nursing Order: Medical education Signs/symptoms of disease process Wound care and dressing changes (Do not change at home; patient will have change at Study Specialist's office) Nursing assessment with vital signs I have seen patient Vincent Siddiqui on 08/16/17. My clinical findings support the need for the requested home health care services because: Patient has SOB I certify that my clinical findings support that this patient is homebound because: Post-op weakness Ismael Goldman MD R3 August 16, 2017 11:57
[2017-08-16] MEDS ORDERED: SACU1TAB PO ×2 (12:05→12:24)
[2017-08-16] MEDS ORDERED: TORS1TAB12 PO ×2 (12:05→12:24)
[2017-08-16] MEDS ORDERED: LEVO500T8 PO (12:05)
[2017-08-16] MEDS ORDERED: TRAM50 PO (12:24)
[2017-08-16] MEDS ORDERED: POTA-163 PO (12:24)
== END 2017-08-16 13:30 | disposition home health service (06) | DRG 227 ==
LOC: NEPC 09:08 → NEDA 12:25 → N04B 14:16 → HCIS 08-15 16:04
PROVIDERS: ADMIT Family Medicine; ATTEND Family Medicine
PROC: 02HK3KZ Insertion of Defibrillator Lead into Right Ventricle, Percutaneous Approach (ICD-10-PCS; 2017-08-15)
PROC: 0JH608Z Insertion of Defibrillator Generator into Chest Subcutaneous Tissue and Fascia, Open Approach (ICD-10-PCS; principal; 2017-08-15 14:00)
DX: I11.0 Hypertensive heart disease with heart failure (principal); I42.0 Dilated cardiomyopathy; J44.9 Chronic obstructive pulmonary disease, unspecified; I25.810 Atherosclerosis of coronary artery bypass graft(s) without angina pectoris; I50.23 Acute on chronic systolic (congestive) heart failure; I25.10 Atherosclerotic heart disease of native coronary artery without angina pectoris; N40.1 Benign prostatic hyperplasia with lower urinary tract symptoms; R35.0 Frequency of micturition; R74.8 Abnormal levels of other serum enzymes; E87.6 Hypokalemia; E78.5 Hyperlipidemia, unspecified; I25.5 Ischemic cardiomyopathy; E78.00 Pure hypercholesterolemia, unspecified; I34.0 Nonrheumatic mitral (valve) insufficiency; G47.30 Sleep apnea, unspecified; Z79.82 Long term (current) use of aspirin; Z95.5 Presence of coronary angioplasty implant and graft; Z87.891 Personal history of nicotine dependence; Z85.72 Personal history of non-Hodgkin lymphomas
CPT/HCPCS: 33249; 71045; 78452; 80048; 80053; 81001; 83735; 83880; 84132; 84484; 85025; 85610; 85730; 93005; 93017; 96365; 96375; A9502; C1722; C1777; J0690; J1650; J1940; J2370; J2785; J3010; J3370; J3480; J7030; J7050; J7613; Q9967

== ENCOUNTER 2017-09-15 10:15 | Day surgery (SDC) | payer MEDICARE, OTHER ==
[~2017-09-15] VITALS: Ht 182.9 cm; Wt 85.9 kg
[~2017-09-15 10:15] MED LIST changes: +LEVO500T8 PO; +POTA-163 PO; +SACU1TAB PO; -TORS10TA2 PO; +TORS1TAB12 PO; +TRAM50 PO; -VALS1TAB64 PO
[2017-09-15 11:00] VITALS: BP 97/59; PULSE 70; RESP 18; TEMP 98.5; O2SAT 97
[2017-09-15 11:25] LABS: AUTOMATED NEUTROPHIL # 5.2 TH/MM3 (1.8-7.7); BASOPHIL % 0.6 % (0.0-2.0); EOSINOPHIL # 0.4 TH/MM3 (0-0.4); HEMATOCRIT 46.8 % (39.0-51.0); HEMOGLOBIN 15.5 GM/DL (13.0-17.0); LYMPH % 22.1 % (9.0-44.0); LYMPHOCYTE # 1.8 TH/MM3 (1.0-4.8); MEAN CELL VOLUME 86.5 FL (80.0-100.0); MEAN CORPUSCULAR HEMOGLOBIN 28.6 PG (27.0-34.0); MEAN CORPUSCULAR HGB CONC 33.1 % (32.0-36.0); MEAN PLATELET VOLUME 8.9 FL (7.0-11.0); MONO % 6.1 % (0.0-8.0); MONOCYTE # 0.5 TH/MM3 (0-0.9); NEUT % 66.2 % (16.0-70.0); PLATELET COUNT 146 TH/MM3 (150-450); RED BLOOD COUNT 5.41 MIL/MM3 (4.50-5.90); RED CELL DISTRIBUTION WIDTH 16.1 % (11.6-17.2); WHITE BLOOD COUNT 7.9 TH/MM3 (4.0-11.0)
[2017-09-15] MEDS ORDERED: POVIDONE IODINE 5% (ANTISEPSIS KIT) 4 APPLICATIONS EACH NARE SCH (11:30)
[2017-09-15] MEDS ORDERED: VANCOMYCIN 1000 MG/NS 200 ML IV SCH (11:30)
[2017-09-15] MEDS ORDERED: ceFAZolin 2 GM PREMIX 50 ML IV SCH (11:30)
[2017-09-15] MEDS ORDERED: CHLORHEXIDINE GLUCONATE 2 % 1 PACK (2 CLOTHS) TOPICAL SCH (11:30)
[2017-09-15] MEDS ORDERED: MUPIROCIN 2% OINT 1 APPLIC/GM SYR NASAL SCH (11:30)
[2017-09-15 11:35] LABS: PROTHROMBIN TIME - PATIENT 10.3 SEC (9.8-11.6)
[2017-09-15 11:39] LABS: BICARBONATE 23.7 MEQ/L (21.0-32.0); CALCIUM 9.7 MG/DL (8.5-10.1); CREATININE 1.29 MG/DL (0.60-1.30)
[2017-09-15] MEDS ORDERED: LIDOCAINE HCL 2% 20 ML VIAL ONE (11:39)
[2017-09-15] MEDS ORDERED: MIDAZOLAM HCL 5 MG/5 ML VIAL ONE (11:40)
[2017-09-15] MEDS ORDERED: VANCOMYCIN HCL 1000 MG VIAL ONE (11:43)
[2017-09-15] MEDS ORDERED: ceFAZolin INJ 1,000 MG VIAL ONE (11:44)
[2017-09-15] MEDS ORDERED: NS 1000 ML IV SCH (12:00)
[2017-09-15] MEDS ORDERED: LEVA500T33 PO (12:55)
[2017-09-15] MEDS ORDERED: ACETAMINOPHEN 325 MG TAB PO PRN (13:00)
--- NOTE | 2017-09-15 13:04 | MP ---
cc: Gerry Andrade MD DATE OF OPERATION: 09/15/2017 PROCEDURE: AICD pocket revision, re-setting of shock lead position in the header and tightening of set screw. OPERATIVE NOTES: Recent AICD interrogations reveal a marked rise in the shock impedance of the shocking lead. It was suspected that the set screw was loosened with an air piston effect. It was decided to explore the lead integrity and the screw tightness. A transverse incision was made over the preexisting incision. Extensive scar tissue was evident, and it was difficult dissecting the AICD generator from the pocket. It was finally removed after careful considerable blunt dissection, including using a PlasmaBlade. It was evident that the set screw on the shocking lead was loose. The lead was removed, cleaned, and then placed back. The screw was tightened. We verified the shock impedance to be now in good range. The lead and the generator were placed back into the subcutaneous pocket, which was closed using 3-0 Vicryl interrupted stitches in 2-3 layers to close the subcutaneous tissue and then 4-0 Monocryl running stitch to close the subcuticular tissue. Overlapping Steri-Strips and a dressing were applied. There were no apparent, immediate complications. CONCLUSIONS: 1. Status post somewhat difficult automated implantable cardioverter defibrillator pocket revision. 2. Status post replacement of the shock lead and tightening of the set screw, which appears to have loosened due to an air piston effect shortly after implant (~2 days later). MD YURI Michelle/SB , 12:48 PM , 01:03 PM CHRISTOS
--- NOTE | 2017-09-15 13:23 | CATHPROC ---
Patient Name: LUCY POTTS Study #: [id number] Initial MD: Gerry Andrade Date of : 1940 Study Date: 09/15/2017 Cardiac Catheterization Report 09/15/2017 1:22:49 PM Financial #: [id number] 1 of 10 Patient Name: LUCY POTTS Study #: [id number] Initial MD: Gerry Andrade Date of : 1940 Study Date: 09/15/2017 Entire Case Report Patient Information Patient Name LUCY POTTS Date of 1940 Age 76 years Financial # [id number] Gender M AlternateID Lab Number 6 Room Number DC08 Height (in) 72.0 Height (cm) 182.9 BSA 2.08 Weight (lbs) 188.3 Weight (kg) 85.6 Patient Address/Phone Number Home Address [facility] Home Phone Number [phone] [facility] [id number] Study Information Study Number Admission Scheduled Start Study Start [id number] Sep 15 2017 10:15AM 09/15/2017 Sep 15 2017 11:36AM [facility] Cardiac Pacer/ICD Admit Source Facility Department Other [facility] - Janitorial Maintenance Worker Physician and Clinical Staff Initial Gerry Barakat Farm Equipment Mechanic Apprentice Amy Sellers,RT(R) TECH2 Other Charity Pineda,SANDRA Recorder Shalini Marshall RN Scrub Sarah Carreno,MENTAL HEALTH CASE MANAGER TECH2 09/15/2017 1:22:49 PM Financial #: [id number] 2 of 10 Patient Name: LUCY POTTS Study #: [id number] Initial MD: Gerry Andrade Date of : 1940 Study Date: 09/15/2017 Equipment Time News Writer Description Size Mfg Part Number Used/Scraped [id number] 12:00 [employer] BLANKET,WARM AIR CCL * Used *[id number] 12:00 [employer] SUTURE, STRIP PLUS 1/2" * Used *[id number] 12:00 MEDLINE PACER ADHESIVE, MASTISOL 2/3CC 2/3CC 0523-48 Used 12:00 MEDLINE PACER ALEXANDER, LIMB * 2530 *[id number] Used [id number] 12:00 MEDLINE PACER PACK, PACER CUSTOM * Used *[id number] 12:00 MEDLINE PACER PEN, SKIN DUAL W/ RULER * Used *[id number] 12:05 Needle Sponge Count 2 2 Used 12:07 Needle Sponge Count 2 2 Used 12:06 Needle Sponge Count 20 200 Used 12:06 Needle Sponge Count 3 33 Used 12:07 Needle Sponge Count 30 1 Used 12:06 Needle Sponge Count 30 1 Used [id number] *[id number] SUTURE, 3-0 VICRYL [SH] ([id number]) SUTURE, 3-0 VICRYL [SH] ([id number]) SUTURE, 4-0 MONOCRYL [PS2] (Y496G) [facility] PAD, ELECTROSURGICAL 12:00 * [id number] *[id number] Used SURGICAL GROUNDING ORANGE [id number] 12:26 VITATRON [employer] PLASMABLADE, PEAD 3.0S * Used *[id number] 2415-2303 12:00 [employer] HARLAN. / * Used *77849 Insurance Information Insurance Payor Medicare Third Democrat Third Democrat Number MEDICARE A B MCRAB History: Allergies Allergy Reaction No Known Allergies 09/15/2017 1:22:49 PM Financial #: [id number] 3 of 10 Patient Name: LUCY POTTS Study #: [id number] Initial MD: Gerry Andrade Date of : 1940 Study Date: 09/15/2017 History: Risk Factors Hypertension Dyslipidemia Previous Heart Failure Yes Yes Yes Prior PCI Prior CABG Yes Yes Chronic Lung Diabetes Disease Yes Yes Labs Hgb (g/dl) Hct (%) RBC (MIL/MM3) WBC (l/cumm) Platelets (thousands) 11.60-17.00 35.00-51.00 4.00-5.90 4.00-11.00 150.00-450.00 15.5 46.8 5.4 7.9 146 Glucose (mg/dl) BUN (mg/dl) Creatinine (mg/dl) BUN:Creatinine (1:x) 74.00-106.00 7.00-18.00 0.50-1.30 10.00-20.00 129 19 1.3 14.6 Na (meq/l) K (meq/l) 136.00-145.00 3.50-5.10 140 4.2 INR (PTT:PT) 0.90-1.10 1 Medication Medication Total Dose (Bolus/Oral) Medication Total Dosage/Unit 2% XYLOCAINE 50 mL FENTANYL 75 mcg VERSED 4 mg 09/15/2017 1:22:49 PM Financial #: [id number] 4 of 10 Patient Name: LUCY POTTS Study #: [id number] Initial MD: Gerry Andrade Date of : 1940 Study Date: 8 Medications (Bolus/Oral) Medication Time Given Dosage/Unit Administered By Reason VERSED 09/15/2017 12:10:00 PM 2 mg Edwin Charity As per physicians verba l order 2 mg VERSED given in lab by Charity Pineda RN via Peripheral IV. Ordered by Gerry Andrade. Reason: As per physicians verbal order. FENTANYL 09/15/2017 12:11:08 PM 50 mcg Edwin Charity As per physicians verb al order 50 mcg FENTANYL given in lab by Charity Pineda RN via Peripheral IV. Ordered by Gerry Andrade. Reason : As per physicians verbal order. 2% XYLOCAINE 09/15/2017 12:16:48 PM 50 mL Gerry Andrade 50 mL 2% XYLOCAINE given in lab by Gerry Andrade in Right shoulder via Subcutaneous. Ordered by Gerry Andrade. VERSED 09/15/2017 12:18:52 PM 2 mg Hesher, Charity As per physicians verba l order 2 mg VERSED given in lab by Charity Pineda RN via Peripheral IV. Ordered by Gerry Andrade. Reason: As per physicians verbal order. FENTANYL 09/15/2017 12:20:46 PM 25 mcg Hesher, Charity As per physicians verb al order 25 mcg FENTANYL given in lab by Charity Pineda RN via Peripheral IV. Ordered by Gerry Andrade. Reason : As per physicians verbal order. Medication (Drip) Medication Time Given Dosage/Unit Concentration/Unit Diluent (ml) Solution ANCEF 09/15/2017 11:50:20 AM 2 g 2 g ANCEF given in lab by Charity Pineda, SANDRA via Peripheral IV. Reason: As per physicians verbal orde r. VANCOMYCIN DRIP 09/15/2017 11:56:31 AM 1 g 1 g VANCOMYCIN DRIP given in lab by Charity Pineda, SANDRA via Peripheral IV. Ordered by Gerry Andrade. Re ason: As per physicians verbal order. 09/15/2017 1:22:49 PM Financial #: [id number] 5 of 10 Patient Name: LUCY POTTS Study #: [id number] Initial MD: Gerry Andrade Date of : 1940 Study Date: 09/15/2017 Vitals Summary Pain Time HR NIBP SpO2 Resp Temp EtCO2 Apnea Jose Espinoza Comment Level 11:45:31 71 112/53 93.0 16 10 0 2 11:50:25 79 111/63 92.0 10 0 2 11:56:05 70 122/63 94.0 10 0 2 12:00:30 71 117/59 95.0 10 0 2 12:05:29 70 117/56 96.0 10 0 2 12:10:30 81 111/58 95.0 12:15:27 76 96/57 91.0 7 0 4 12:20:26 75 92/48 93.0 7 0 4 12:25:25 74 94/49 95.0 7 0 3 12:30:26 73 78/49 7 0 3 12:35:13 71 88/49 91.0 7 0 3 12:40:24 72 94/52 7 0 3 12:45:25 72 94/53 95.0 7 0 3 12:50:59 86 105/61 93.0 7 0 3 12:56:02 89 116/71 93.0 13:00:30 87 104/61 96.0 13:05:29 86 99/58 97.0 8 0 3 13:10:26 87 102/59 98.0 8 0 3 13:15:27 86 111/64 9 0 3 13:20:28 88 114/71 10 0 2 09/15/2017 1:22:49 PM Financial #: [id number] 6 of 10 Patient Name: LUCY POTTS Study #: [id number] Initial MD: Gerry Andrade Date of : 1940 Study Date: 09/15/2017 Jose Score Summary Time Activity Resp Circ LOC Color Total Score 11:45:31 2 2 2 2 2 10 11:50:25 2 2 2 2 2 10 11:56:05 2 2 2 2 2 10 12:00:30 2 2 2 2 2 10 12:05:29 2 2 2 2 2 10 12:15:27 1 1 2 1 2 7 12:20:26 1 2 1 1 2 7 12:25:25 2 1 1 1 2 7 12:30:26 2 1 1 1 2 7 12:35:13 2 1 1 1 2 7 12:40:24 2 1 1 1 2 7 12:45:25 2 1 1 1 2 7 12:50:59 2 1 1 1 2 7 13:05:29 2 1 2 1 2 8 13:10:26 2 1 2 1 2 8 13:15:27 2 2 2 1 2 9 13:20:28 2 2 2 2 2 10 Jose Score Definition Table Activity - 0 Activity - 1 Activity - 2 No Movement to Command Weak Hand Grasp Lift Head, Good Hand Grasp Respiration - 0 Respiration - 1 Respiration - 2 Apneic or Obstructed Shallow Breath, Airway Adjunct Deep Breath, Cough Freely Circulation - 0 Circulation - 1 Circulation - 2 B/P > 50% Admission B/P B/P > 20-50% Admission B/P B/P Stable X3 Level of Consciousness - 0 Level of Consciousness - 1 Level of Consciousness - 2 Not Responding Arousable On Calling Awake and Aware Color - 0 Color- 1 Color - 2 Cyanotic Lips, Nailbed, Skin Pale, Dusky [place] Or Normal Chronological Log Time Study Chronological Log 11:33:40 Patient arrived via Bed. 11:33:44 Patient Name, D.O.B, / Armband Verified By R.N. 11:33:47 Consent signed by the physician and the patient and verified by the Janitorial Maintenance Worker staff. 11:33:49 Pre-op and post- op instructions given; patient acknowledges understanding of instruction s. 09/15/2017 1:22:49 PM Financial #: [id number] 7 10 Patient Name: LUCY POTTS Study #: [id number] Initial MD: Gerry Andrade Date of : 1940 Study Date: 09/15/2017 11:33:53 Verbal Stimulation=2 Physical Stimulation=2 Airway=2 Respiration=2 TOTAL=8. (0=absent, 1=li mited, 2=present) 11:35:00 2% CHLORHEXIDINE GLUCONATE WASH AND NASAL SWIPE DONE PRIOR TO PROCEDURE. 11:36:08 Presedation assessment performed by Janitorial Maintenance Worker RN. 11:36:12 Patient has been NPO for More than 6Hrs. 11:36:12 Skin Breakdown- none per pt 11:36:22 Patient Warmer Placed on the Table. 11:36:24 Disposable Defibrillator Pads Placed On Patient. 11:36:25 Bovie ground pad applied to: left thigh 11:36:26 Kita Prominences Protected 11:36:28 A # 20 IV was noted in the Forearm (left). Grade = 0 0.9% NaCl @ KVO 11:36:29 A # 20 IV was noted in the Forearm (right). Grade = 0 0.9% NaCl @ KVO 11:36:30 History and physical on the chart or being dictated. Vitals capture started with the following parameters, Patient=Adult, Interval=5 min, Initial Pr xsodjf=751 mmHg, 11:44:49 Deflation Rate=5 mmHg, Cuff placed on Right Arm 11:45:31 HR=71 bpm, DXCW=299/53 mmhg, SpO2=93.0 %, Resp=16 B/min, Pain=0, Jose=10, Espinoza=2 11:50:20 2 g ANCEF given in lab by Charity Pineda, RN via Peripheral IV. Reason: As per physicians v erbal order. 11:50:25 HR=79 bpm, EASI=848/63 mmhg, SpO2=92.0 %, Pain=0, Jose=10, Espinoza=2 11:51:04 Right Upper Chest Prepped Times Two. 11:56:05 HR=70 bpm, KXOT=893/63 mmhg, SpO2=94.0 %, Pain=0, Jose=10, Espinoza=2 1 g VANCOMYCIN DRIP given in lab by Charity Pineda, RN via Peripheral IV. Ordered by Tanya Andrade. Reason: As per 11:56:31 physicians verbal order. 11:59:51 A sterile drape was applied after a 5 minute prep drying time. 12:00:30 HR=71 bpm, SPHD=718/59 mmhg, SpO2=95.0 %, Pain=0, Jose=10, Espinoza=2 12:01:00 MD paged 12:04:26 Reference ECG taken First Sponge And Instrument Count Done by Sarah Carreno, MENTAL HEALTH CASE MANAGER TECH2. 12:04:56 Hypo's: 2, Sponges: 30, Bovie/scratch: bovie/scratch Sutures: 4, Blades: 2, Instruments: 26, Syveck Patches: ~SYVECK PATCH~ verified by 12:05:29 HR=70 bpm, HTMW=258/56 mmhg, SpO2=96.0 %, Pain=0, Jose=10, Espinoza=2 12:08:56 MD arrived. 2 mg VERSED given in lab by Charity Pineda, SANDRA via Peripheral IV. Ordered by Gerry Andrade. Reas on: As per 12:10:00 physicians verbal order. 12:10:30 HR=81 bpm, JJZE=188/58 mmhg, SpO2=95.0 % 50 mcg FENTANYL given in lab by Charity Pineda, SANDRA via Peripheral IV. Ordered by Gerry Andrade. Reason: As per 12:11:08 physicians verbal order. Time Out. Correct patient, procedure, procedure equipment, site and side verified with physicia n present. Time 12:13:46 concurred by MD, and individual staff. 12:14:38 Case Start 12:14:49 precautions taken, antibiotics administered. Time out concurred by MD,and individual staff in p rocedure 12:15:27 HR=76 bpm, NIBP=96/57 mmhg, SpO2=91.0 %, Pain=0, Jose=7, Espinoza=4 09/15/2017 1:22:49 PM Financial #: [id number] 8 of 10 Patient Name: LUCY POTTS Study #: [id number] Initial MD: Gerry Andrade Date of : 1940 Study Date: 09/15/2017 12:16:48 50 mL 2% XYLOCAINE given in lab by Gerry Andrade in Right shoulder via Subcutaneous. Ordered by Gerry Andrade. 12:17:21 Surgical Incision Made. 2 mg VERSED given in lab by Charity Pineda, RN via Peripheral IV. Ordered by Gerry Andrade. Reas on: As per 12:18:52 physicians verbal order. 12:19:19 A pocket was created at the R Upper Chest. 12:20:26 HR=75 bpm, NIBP=92/48 mmhg, SpO2=93.0 %, Pain=0, Jose=7, Espinoza=4 25 mcg FENTANYL given in lab by Charity Pineda, RN via Peripheral IV. Ordered by Gerry Andrade. Reason: As per 12:20:46 physicians verbal order. 12:25:25 HR=74 bpm, NIBP=94/49 mmhg, SpO2=95.0 %, Pain=0, Jose=7, Espinoza=3 12:26:42 Plasmablade utilized for pocket creation. 12:30:21 A device was explanted. 12:30:26 HR=73 bpm, NIBP=78/49 mmhg, Pain=0, Jose=7, Espinoza=3 12:32:33 Screws removed and adjusted then tightened and resecured. 12:33:12 The device was replaced into the pocket. 12:34:44 The pocket is being closed. Second Sponge And Instrument Count Done by Sarah Carreno, MENTAL HEALTH CASE MANAGER TECH2. 12:34:55 Hypo's: 2, Sponges: 30, Bovie/scratch: bovie/scratch Sutures: 7, Blades: 3, Instruments: Syveck Patches: ~SYVECK PATCH~ 12:35:13 HR=71 bpm, NIBP=88/49 mmhg, SpO2=91.0 %, Pain=0, Jose=7, Espinoza=3 12:40:24 HR=72 bpm, NIBP=94/52 mmhg, Pain=0, Jose=7, Espinoza=3 12:43:30 Case End (Physician broke scrub) 12:45:25 HR=72 bpm, NIBP=94/53 mmhg, SpO2=95.0 %, Pain=0, Jose=7, Espinoza=3 12:50:59 HR=86 bpm, IOGJ=307/61 mmhg, SpO2=93.0 %, Pain=0, Jose=7, Espinoza=3 12:56:02 HR=89 bpm, DXEP=789/71 mmhg, SpO2=93.0 % 12:57:00 Implant Procedure was performed. 12:57:00 A Pocket Revision . (Dual) tightening of lead screws. 13:00:30 HR=87 bpm, RNBA=967/61 mmhg, SpO2=96.0 % 13:00:57 DOCU called. Spoke to Christopher 13:00:58 Bedside Report will be given. 13:05:29 HR=86 bpm, NIBP=99/58 mmhg, SpO2=97.0 %, Pain=0, Jose=8, Espinoza=3 13:10:26 HR=87 bpm, WQIM=405/59 mmhg, SpO2=98.0 %, Pain=0, Jose=8, Espinoza=3 13:15:27 HR=86 bpm, UTPX=553/64 mmhg, Pain=0, Jose=9, Espinoza=3 Final Sponge And Instrument Count Done by Sarah Carreno, MENTAL HEALTH CASE MANAGER TECH2. 13:17:19 Hypo's: 2, Sponges: 30, Bovie/scratch: bovie/scratch Sutures: 7, Blades: 3, Instruments: 26, Syveck Patches: ~SYVECK PATCH~ count verified by BL 13:17:28 The pocket is closed. 13:17:49 Steri-strips and a sterile dressing applied to site. 13:20:08 No case complications noted. 13:20:09 Cine recording checked. 13:20:28 HR=88 bpm, LBFD=724/71 mmhg, Pain=0, Jose=10, Espinoza=2 13:21:30 Patient moved to [facility] 09/15/2017 1:22:49 PM Financial #: [id number] Patient Name: LUCY POTTS Study #: [id number] Initial MD: Gerry Andrade Date of : 1940 Study Date: 09/15/2017 13:21:44 Defibrillator and ground pads removed. Skin intact. 13:23:30 Patient transported via bed back to DOCU with RN and tech accompanying him in stable condi tion on r/a End Study - Contrast Media Used In Study Contrast Total Opened (mL) Total Used (mL) Total Wasted (mL) Unspecified 0 0 0 End Study - Maximum Contrast Load Max Contrast Load (mL) 329.2 End Study - Radiation Exposure Fluoro Time (minutes) 0.2 End Study - Patient Disposition Complications Transferred To Telemetry Bed 09/15/2017 1:22:49 PM Financial #: [id number] 10 10
--- NOTE | 2017-09-16 15:14 | EKG ---
Date Performed: 09/15/2017 Time Performed: 11:09:12 PTAGE: 76 years EKG: Sinus rhythm with PVC(s). Left axis deviation Right bundle branch block Inferior/lateral ST-T changes are nonspec ific Low QRS voltages in precordial leads Abnormal ECG Since PREVIOUS TRACING , no significant change noted PREVIOUS TRACIN08/13/2017 22.10 DOCTOR: Chandler Cm Interpretating Date/Time 09/16/2017 15:10:11
== END 2017-09-15 15:15 | disposition home or self-care (01) ==
LOC: HDOC 10:15 → HDIC 10:17 → HDOC 15:15
PROVIDERS: ATTEND Internal Medicine Cardiovascular Disease
DX: T82.598A Other mechanical complication of other cardiac and vascular devices and implants, initial encounter (principal); Z45.02 Encounter for adjustment and management of automatic implantable cardiac defibrillator; Z79.899 Other long term (current) drug therapy; Z79.82 Long term (current) use of aspirin
CPT/HCPCS: 33223; 80048; 85025; 85610; 85730; 93005; 99152; 99153; J0690; J2250; J3010; J3370